=== PATIENT | male | born 1995 | race African-American/Black ===

== ENCOUNTER 2020-06-19 13:50 | Inpatient (IN) | payer OTHER ==
[~2020-06-19] VITALS: Ht 182.9 cm; Wt 66.7 kg
[2020-06-19] MEDS ORDERED: Tamsulosin 0.4mg cap ORAL STA (14:26)
[2020-06-19] MEDS ORDERED: Ketorolac 30mg Inj IV ONE (14:30)
--- NOTE | 2020-06-19 14:30 | Emergency Room Report ---
History of Present Illness General Chief Complaint: Abdominal Pain Source: Patient Present Illness HPI Patient is a 25-year-old -Italian male with past medical history of kidney stones that was diagnosed April 28 [place] presents with chief complaint of intermittent left flank pain for the past 2 weeks. He states that he had some hematuria associated with chills but no fever. He is sexually active/monogamous with 1 partner. He was recently checked for STDs and found to be negative. He is denying any concern for STD at this time. Denies penile discharge, scrotal lesion, testicular pain, chest pain, shortness of breath, melena, hematochezia or other symptoms. Patient is tolerating normal diet. The patient's symptoms were gradual onset, severity was moderate, duration since 2 weeks. Quality: Aching Past medical history: Kidney stones Past surgical history: Denies Smoking: Denies Alcohol use: Denies Drug use: Denies Review of systems: CONST: No fevers +chills, No night sweats PULMONARY: No productive cough, No shortness of breath CARDIAC: No chest pain, No palpitations GI: + vomiting, + diarrhea , No melena_or_BRBPR : No dysuria, No hematuria, No discharge NEURO: No new_focal_weakness_or_numbness, No confusion, No vision changes 14 point Review of Systems is otherwise negative except per HPI Physical Exam: GENERAL: Awake_alert_ nontoxic, no acute distress Spo2 98 % on RA -normal EYES: Extraocular muscles are intact. Conjunctivae clear. Lids without swelling ENT: External nose and ear normal_in_appearance. Oropharynx clear. Head_ atraumatic, Moist_oral_mucosa NECK: No JVD. No meningismus. No thyromegaly. Supple. Trachea midline RESP: Normal respiratory effort. Symmetric rise. No stridor. Clear_to_ auscultation_No_rales_No_wheezes CARDIAC: Tachycardic. Regular rhythm. No_significant pedal edema. ABDOMEN: Soft. Nondistended. Nontender_No_rebound_or_guarding. MSK: Normal muscle tone, without rigidity. Extremities without asymmetric deformity or swelling. SKIN: Warm and dry. No visible cyanosis or pallor NEUROLOGIC: Alert, oriented x3. Motor_and_sensation_grossly_intact. No truncal ataxia. Gait_normal Psych: Normal mood and affect, normal judgment and insight - COORDINATION OF CARE Case was discussed with: Patient Any labs and imaging that were ordered were interpreted as part of the medical decision making: Medical Decision Making/Plan: Differential diagnosis includes appendicitis, diverticulitis, kidney stone, enteritis, proctitis, UTI, doubt testicular torsion small bowel obstruction, volvulus, AAA, pancreatitis, among others. Patient is has low grade tachycardia and hypotension. Abdominal exam is non peritoneal with no guarding or rebound. No CVA tenderness to palpation. Sepsis bundle initiated on arrival. Blood cultures, lactate drawn. Lactate was not elevated, patient was given 30 cc/kg IV fluids by bolus but remained hypotensive. Empiric antibiotics were started including flagyl and rocephin. ED intervention included fluids, Zofran, Toradol, and Flomax. Labs show mild leukocytosis of 11.4. Anion gap of 16. Creatinine function is within normal limits. Urinalysis is consistent with UTI. CT scan shows cystitis, proctitis, enteritis/ileus. There are also several nonobstructing kidney stones I spoke with Dr. Conte, and reviewed the patients presentation, workup, results, and treatment. They will admit the patient for further care and evaluation, and assume care of the patient at this time. The patient has no significant risk factors for AAA (abdominal aortic aneurysm) such as age over 50 with history of hypertension, connective tissue disorder, or 1st degree relative with AAA. In addition, the patient has normal dorsalis pedis pulses, no radiation of pain to the back, and no pulsatile mass felt on exam. The patients profile was overall low risk for AAA and definitive workup was not pursued. The patients presentation is not consistent with testicular torsion. The patient denies any testicular pain, pain was not sudden onset or associated with vomiting. Testicular exam is normal without any evidence of torsion. The patient denies any bloody stool and has no pain out of proportion to exam, and no significant risk factors for mesenteric ischemia such as atrial fibrillation or severe PAD/PVD (peripheral arterial / vascular disease), thus definitive workup to rule out mesenteric ischemia was not pursued. Allergies: Coded Allergies: No Known Allergies (Unverified , 06/19/20) COVID-19 Screening Contact w/high risk pt: No Experienced COVID-19 symptoms?: No COVID-19 Testing performed BILL COLLECTOR: No Nursing Documentation-PMH Past Medical History: No Stated History Physical Exam Vital Signs Date Time Temp Pulse Resp B/P (MAP) Pulse Ox O2 Delivery O2 Flow Rate FiO2 06/19/20 14:02 98.8 134 18 99/66 (77) 99 Room Air Sp02 EP Interpretation: reviewed, normal Medical Decision Making Diagnostic Impression: Primary Impression: Sepsis Additional Impressions: Proctitis Cystitis Hyponatremia Dehydration with hyponatremia Nephrolithiasis Abdominal pain Rhythm Strip Diag. Results Rhythm Strip Time: 15:38 EP Interpretation: yes Rate: 111 Rhythm: NSR, no PVC's, no ectopy CT/MRI/US Diagnostic Results CT/MRI/US Diagnostic Results : Impression CT Abdomen Pelvis WO Contrast EXAM: CT Abdomen and Pelvis Without Intravenous Contrast CLINICAL HISTORY: PAIN TECHNIQUE: Axial computed tomography images of the abdomen and pelvis without intravenous contrast. CTDI is 3.6 mGy and DLP is 193.5 mGy-cm. One or more of the following dose reduction techniques were used: automated exposure control, adjustment of the mA and/or kV according to patient size, use of iterative reconstruction technique. COMPARISON: None FINDINGS: Lung bases: Unremarkable. No mass. No consolidation. ABDOMEN: Liver: Unremarkable. Gallbladder and bile ducts: Slightly hyperdense material within the gallbladder may represent artifact versus stones/sludge. No ductal dilation. Pancreas: Unremarkable. No ductal dilation. Spleen: Unremarkable. No splenomegaly. Adrenals: Unremarkable. No mass. Kidneys and ureters: Punctate nonobstructing bilateral renal stones. No hydronephrosis or definite ureteral stone. Stomach and bowel: Wall thickening of the rectum with perirectal fat stranding and small amount of presacral fluid, concerning for proctitis. Mildly prominent fluid and gas-filled small bowel loops are nonspecific but may represent enteritis or ileus in the appropriate clinical setting. No obstruction. PELVIS: Appendix: Fluid around the appendix, but the appendix otherwise appears normal. Bladder: Severe bladder wall thickening and surrounding fat stranding, concerning for cystitis. The bladder is decompressed. No stones. Reproductive: Unremarkable as visualized. ABDOMEN and PELVIS: Intraperitoneal space: Small amount of ascites. No free air. Bones/joints: No acute fracture. No dislocation. Soft tissues: Unremarkable. Vasculature: Unremarkable. No abdominal aortic aneurysm. Lymph nodes: Prominent mesenteric lymph nodes are nonspecific but may be reactive. IMPRESSION: 1. Punctate nonobstructing bilateral renal stones. No hydronephrosis or definite ureteral stone. 2. Severe bladder wall thickening and surrounding fat stranding, concerning for cystitis. The bladder is decompressed. 3. Wall thickening of the rectum with perirectal fat stranding and small amount of presacral fluid, concerning for proctitis. 4. Mildly prominent fluid and gas-filled small bowel loops are nonspecific but may represent enteritis or ileus in the appropriate clinical setting. 5. Small amount of ascites. Last Vital Signs Date Time Temp Pulse Resp B/P (MAP) Pulse Ox O2 Delivery O2 Flow Rate FiO2 06/19/20 14:02 98.8 134 18 99/66 (77) 99 Room Air Disposition: ADMITTED INPATIENT Admit Decision Time: 15:00 Condition: Stable Romy Bocanegra D.O. Jun 19, 2020 14:29
[2020-06-19] MEDS ORDERED: cefTRIAXone 1 GM in NS 55 ML IVPB ONE (14:45)
[2020-06-19 14:50] LABS: BASOPHILS % (AUTO) 1.8 % (0.0-2.0); EOSINOPHILS % (AUTO) 0.1 % (0.0-3.0); HEMATOCRIT 30.1 % (42.0-52.0); HEMOGLOBIN 9.8 G/DL (14.2-18.0); LYMPHOCYTES % (AUTO) 19.3 % (20.0-45.0); MEAN CORPUSCULAR VOLUME 79 FL (80-99); MONOCYTES % (AUTO) 7.5 % (1.0-10.0); NEUTROPHILS % (AUTO) 71.2 % (45.0-75.0); PLATELET COUNT 497 K/UL (150-450); RED CELL DISTRIBUTION WIDTH 13.1 % (11.6-14.8); WHITE BLOOD COUNT 11.4 K/UL (4.8-10.8)
[2020-06-19 14:57] LABS: ANION GAP 16 mmol/L (5-15); BLOOD UREA NITROGEN 17 mg/dL (7-18); CALCIUM 9.6 MG/DL (8.5-10.1); CARBON DIOXIDE 25 MMOL/L (21-32); CHLORIDE 89 MMOL/L (98-107); CREATININE 1.3 MG/DL (0.55-1.30); POTASSIUM 3.9 MMOL/L (3.5-5.1); SODIUM 130 MMOL/L (136-145)
[2020-06-19] MEDS ORDERED: Sodium Chloride 1,900 ML IVLG ONE (15:00)
[2020-06-19 15:02] LABS: ALANINE AMINOTRANSFERASE 149 U/L (12-78); ALBUMIN 2.8 G/DL (3.4-5.0); ALBUMIN/GLOBULIN RATIO 0.4 (1.0-2.7); ALKALINE PHOSPHATASE 125 U/L (46-116); ASPARTATE AMINO TRANSFERASE 132 U/L (15-37); BILIRUBIN,TOTAL 0.9 MG/DL (0.2-1.0); INR 1.3 (0.9-1.1)
--- NOTE | 2020-06-19 15:16 | Diagnostic Imaging Report ---
EXAM: CT Abdomen and Pelvis Without Intravenous Contrast CLINICAL HISTORY: PAIN TECHNIQUE: Axial computed tomography images of the abdomen and pelvis without intravenous contrast. CTDI is 3.6 mGy and DLP is 193.5 mGy-cm. One or more of the following dose reduction techniques were used: automated exposure control, adjustment of the mA and/or kV according to patient size, use of iterative reconstruction technique. COMPARISON: None FINDINGS: Lung bases: Unremarkable. No mass. No consolidation. ABDOMEN: Liver: Unremarkable. Gallbladder and bile ducts: Slightly hyperdense material within the gallbladder may represent artifact versus stones/sludge. No ductal dilation. Pancreas: Unremarkable. No ductal dilation. Spleen: Unremarkable. No splenomegaly. Adrenals: Unremarkable. No mass. Kidneys and ureters: Punctate nonobstructing bilateral renal stones. No hydronephrosis or definite ureteral stone. Stomach and bowel: Wall thickening of the rectum with perirectal fat stranding and small amount of presacral fluid, concerning for proctitis. Mildly prominent fluid and gas-filled small bowel loops are nonspecific but may represent enteritis or ileus in the appropriate clinical setting. No obstruction. PELVIS: Appendix: Fluid around the appendix, but the appendix otherwise appears normal. Bladder: Severe bladder wall thickening and surrounding fat stranding, concerning for cystitis. The bladder is decompressed. No stones. Reproductive: Unremarkable as visualized. ABDOMEN and PELVIS: Intraperitoneal space: Small amount of ascites. No free air. Bones/joints: No acute fracture. No dislocation. Soft tissues: Unremarkable. Vasculature: Unremarkable. No abdominal aortic aneurysm. Lymph nodes: Prominent mesenteric lymph nodes are nonspecific but may be reactive. IMPRESSION: 1. Punctate nonobstructing bilateral renal stones. No hydronephrosis or definite ureteral stone. 2. Severe bladder wall thickening and surrounding fat stranding, concerning for cystitis. The bladder is decompressed. 3. Wall thickening of the rectum with perirectal fat stranding and small amount of presacral fluid, concerning for proctitis. 4. Mildly prominent fluid and gas-filled small bowel loops are nonspecific but may represent enteritis or ileus in the appropriate clinical setting. 5. Small amount of ascites.
[2020-06-19 15:18] VITALS: BP 99/66
[2020-06-19 15:24] LABS: APPEARANCE,URINE CLOUDY; BILIRUBIN, URINE 2+ (NEGATIVE); COLOR,URINE YELLOW; GLUCOSE, URINE (UA) NEGATIVE (NEGATIVE); KETONES,URINE NEGATIVE (NEGATIVE); NITRITE,URINE NEGATIVE (NEGATIVE); PROTEIN,URINE 1+ (NEGATIVE)
[2020-06-19 15:25] LABS: LEUKOCYTE ESTERASE ,URINE NEGATIVE (NEGATIVE); UROBILINOGEN,URINE 4 MG/DL (0.0-1.0)
[2020-06-19] MEDS ORDERED: metroNIDAZOLE 500mg tab ORAL ONE (15:30)
[2020-06-19 17:00] VITALS: BP 118/71
[2020-06-19] MEDS: D5NS 1,000 ML IV SCH (18:00)
[2020-06-19 18:30] VITALS: BP 139/93
[2020-06-19 20:00] VITALS: BP 117/77
[2020-06-19] MEDS: Heparin 5000 units/ml inj SUBQ SCH (21:13)
[2020-06-19] MEDS: Piperacillin/Tazobactam 3.375 GM in NS 110 ML IVPB SCH (21:13)
[2020-06-19] MEDS: metroNIDAZOLE 500mg tab ORAL SCH (21:13)
--- NOTE | 2020-06-19 21:44 | History and Physical Report ---
DATE OF ADMISSION: 06/19/2020 CHIEF COMPLAINT: Abdominal pain and back pain. HISTORY OF PRESENT ILLNESS: The patient is 25-year-old male. He has no significant past medical history. He recently moved from [place]. He presents now with complaints of back pain and crampy abdominal pain. According to the patient, he was well. He was apparently diagnosed with kidney stone several months back during workup for epididymitis. He was recently in [place] where he was diagnosed with an infected hair follicle on the scrotum. He did receive antibiotics. He moved here several weeks ago. He denies any diarrhea, but he has had intermittent episodes of crampy abdominal pain. He also had some back pain which he attributes to kidney stones. On evaluation in the emergency room, the patient was afebrile. He was tachycardic. Laboratories were significant for sodium 130 and elevated AST and ALT of and 149. A CT scan of the abdomen showed nonobstructing bilateral kidney stones, severe bladder wall thickening consistent with cystitis. Thickening of the rectum and perirectal fat stranding consistent with proctitis as well as prominent fluid and gas-filled small bowel loops. The patient has been started on IV hydration as well as antibiotics. He is now admitted for further evaluation and care. PAST MEDICAL HISTORY: None. PAST SURGICAL HISTORY: None. CURRENT MEDICATIONS: None. FAMILY HISTORY: None. SOCIAL HISTORY: No tobacco, ethanol, or drugs. REVIEW OF SYSTEMS: GENERAL: No fevers or chills. HEENT: No headaches or visual changes. CARDIOPULMONARY: No chest pain or shortness of breath. GASTROINTESTINAL: Mild chronic abdominal pain. No melena. No bright red blood per rectum. No diarrhea. GENITOURINARY: No urgency or frequency. MUSCULOSKELETAL: No joint pain or swelling. NEUROLOGIC: No evidence of seizures. PHYSICAL EXAMINATION: VITAL SIGNS: Temperature 98 degrees, pulse 86, respirations 18, and blood pressure 139/93. GENERAL: The patient well-developed, thin male, in no apparent distress. He is awake, alert, and oriented x4. HEENT: The head is normocephalic and atraumatic. Sclerae are anicteric. Oropharynx is clear. NECK: Supple. HEART: Regular rate and rhythm. LUNGS: Clear. ABDOMEN: Soft, nontender, nondistended with hyperactive bowel sounds. EXTREMITIES: No clubbing, cyanosis, or edema. LABS: White count 11, hemoglobin 10, platelets of 497. Sodium 130, potassium 3.9, AST 132, ALT of 149. UA showed 5 to 20 wbc's. ASSESSMENT: This is a pleasant 25-year-old male with no past medical history, who presents with crampy abdominal pain and back pain secondary to proctitis. The patient did receive antibiotics several weeks ago, so C. difficile is a possibility. He is also hyponatremic. PLAN: 1. IV hydration. Empiric antibiotics to cover for colitis and proctitis. 2. GI and ID consultations will be obtained. 3. We will monitor the patient's response clinically. Can consider colonoscopy if symptoms do not improve. 4. Plan of care was discussed with the patient. Shree Conte M.D. DR: COLLIN JOB#: [id number] CC:
[2020-06-20] VITALS: BP 132/82
[2020-06-20 04:00] VITALS: BP 120/61
[2020-06-20] MEDS: D5NS 1,000 ML IV SCH ×3 (04:00→23:44)
[2020-06-20] MEDS: Piperacillin/Tazobactam 3.375 GM in NS 110 ML IVPB SCH ×3 (05:25→21:05)
[2020-06-20] MEDS: metroNIDAZOLE 500mg tab ORAL SCH (05:25)
[2020-06-20 07:03] LABS: ANION GAP 11 mmol/L (5-15); BLOOD UREA NITROGEN 15 mg/dL (7-18); CALCIUM 8.5 MG/DL (8.5-10.1); CARBON DIOXIDE 25 MMOL/L (21-32); CHLORIDE 94 MMOL/L (98-107); CREATININE 1.2 MG/DL (0.55-1.30); HEMATOCRIT 24.3 % (42.0-52.0); HEMOGLOBIN 7.8 G/DL (14.2-18.0); MEAN CORPUSCULAR VOLUME 79 FL (80-99); PLATELET COUNT 403 K/UL (150-450); POTASSIUM 3.6 MMOL/L (3.5-5.1); RED BLOOD COUNT 3.07 M/UL (4.70-6.10); RED CELL DISTRIBUTION WIDTH 13.3 % (11.6-14.8); SODIUM 130 MMOL/L (136-145); WHITE BLOOD COUNT 9.5 K/UL (4.8-10.8)
[2020-06-20 07:08] LABS: ALANINE AMINOTRANSFERASE 98 U/L (12-78); ALBUMIN 2.1 G/DL (3.4-5.0); ALBUMIN/GLOBULIN RATIO 0.4 (1.0-2.7); ALKALINE PHOSPHATASE 98 U/L (46-116); ASPARTATE AMINO TRANSFERASE 76 U/L (15-37); BILIRUBIN,TOTAL 0.7 MG/DL (0.2-1.0)
[2020-06-20 08:00] VITALS: BP 119/77
--- NOTE | 2020-06-20 08:02 | General Progress Note ---
Assessment/Plan Problem List: (1) Hyponatremia ICD Codes: E87.1 - Hypo-osmolality and hyponatremia SNOMED: 76632300 (2) Proctitis ICD Codes: K62.89 - Other specified diseases of anus and rectum; E87.1 - Hypo- osmolality and hyponatremia SNOMED: 1970166, 86493975 (3) Abdominal pain ICD Codes: R10.9 - Unspecified abdominal pain SNOMED: 79506399 (4) Cystitis ICD Codes: N30.90 - Cystitis, unspecified without hematuria SNOMED: 89257704, 11997346 (5) Dehydration with hyponatremia ICD Codes: E86.0 - Dehydration; E87.1 - Hypo-osmolality and hyponatremia SNOMED: 89831159, 83068322 Status: stable Assessment/Plan: ivf iv abx follow up cultures PPI rx ID, GI and eval Subjective ROS Limited/Unobtainable: No Constitutional: Reports: fever, weakness HEENT: Reports: no symptoms Cardiovascular: Reports: no symptoms Respiratory: Reports: no symptoms Gastrointestinal/Abdominal: Reports: abdominal pain Genitourinary: Reports: no symptoms Neurologic/Psychiatric: Reports: no symptoms Endocrine: Reports: no symptoms Hematologic/Lymphatic: Reports: no symptoms Allergies: Coded Allergies: No Known Allergies (Unverified , 06/19/20) All Systems: reviewed and negative except above Subjective no complaints. mild abd pain. no diarrhea. low grade fevers. on abx, no diarrhea. Objective Last 24 Hour Vital Signs Date Time Temp Pulse Resp B/P (MAP) Pulse Ox O2 Delivery O2 Flow Rate FiO2 06/20/20 04:00 99.2 84 18 120/61 (80) 99 06/20/20 00:08 100.1 06/20/20 00:00 100.1 88 19 132/82 (99) 100 06/19/20 21:50 Room Air 06/19/20 20:00 98.4 71 18 117/77 (90) 100 06/19/20 18:30 98.5 86 18 139/93 (108) 99 06/19/20 18:20 98.6 82 18 125/74 98 Room Air 06/19/20 17:00 98.3 94 18 118/71 98 Room Air 06/19/20 15:18 98.8 111 18 99/66 99 Room Air 06/19/20 15:16 111 18 Room Air 06/19/20 14:02 98.8 134 18 99/66 (77) 99 Room Air Intake and Output 06/19/20 06/20/20 19:00 07:00 Intake Total 1837.5 ml Output Total 800 ml Balance 1037.5 ml Intake Oral 1100 ml IV Total 737.5 ml Output Urine Total 800 ml # Voids 1 Laboratory Tests 06/19/20 14:20: Urine Color Yellow, Urine Appearance Cloudy, Urine pH 6.0, Urine Specific [place] 1.015, Urine Protein 1+H, Urine Glucose (UA) Negative, Urine Ketones Negative, Urine Blood 4+H, Urine Nitrite Negative, Urine Bilirubin 2+H, Urine Ictotest Positive, Urine Urobilinogen 4H, Urine Leukocyte Esterase Negative, Urine RBC 15-20H, Urine WBC 0-2, Urine Squamous Epithelial Cells Occasional, Urine Amorphous Sediment ManyH, Urine Bacteria ManyH 06/19/20 14:28: White Blood Count 11.4H, Red Blood Count 3.80L, Hemoglobin 9.8L, Hematocrit 30.1L, Mean Corpuscular Volume 79L, Mean Corpuscular Hemoglobin 25.9L, Mean Corpuscular Hemoglobin Concent 32.7, Red Cell Distribution Width 13.1, Platelet Count 497H, Mean Platelet Volume 5.2L, Neutrophils (%) (Auto) 71.2, Lymphocytes (%) (Auto) 19.3L, Monocytes (%) (Auto) 7.5, Eosinophils (%) (Auto) 0.1, Basophils (%) (Auto) 1.8, Prothrombin Time 14.0H, Prothromb Time International Ratio 1.3H, Activated Partial Thromboplast Time 31, Sodium Level 130L, Potassium Level 3.9, Chloride Level 89L, Carbon Dioxide Level 25, Anion Gap 16H , Blood Urea Nitrogen 17, Creatinine 1.3, Estimat Glomerular Filtration Rate > 60, Glucose Level 107H, Calcium Level 9.6, Total Bilirubin 0.9, Aspartate Amino Transf (AST/SGOT) 132H, Alanine Aminotransferase (ALT/SGPT) 149H, Alkaline Phosphatase 125H, Total Protein 9.7H, Albumin 2.8L, Globulin 6.9, Albumin/ Globulin Ratio 0.4L, Lipase 196 06/19/20 15:05: Lactic Acid Level 1.10 06/20/20 05:15: White Blood Count 9.5, Red Blood Count 3.07L, Hemoglobin 7.8L, Hematocrit 24.3L , Mean Corpuscular Volume 79L, Mean Corpuscular Hemoglobin 25.4L, Mean Corpuscular Hemoglobin Concent 32.1, Red Cell Distribution Width 13.3, Platelet Count 403, Mean Platelet Volume 5.3L, Neutrophils (%) (Auto) , Lymphocytes (%) ( Auto) , Monocytes (%) (Auto) , Eosinophils (%) (Auto) , Basophils (%) (Auto) , Sodium Level 130L, Potassium Level 3.6, Chloride Level 94L, Carbon Dioxide Level 25, Anion Gap 11, Blood Urea Nitrogen 15, Creatinine 1.2, Estimat Glomerular Filtration Rate > 60, Glucose Level 116H, Calcium Level 8.5, Total Bilirubin 0.7, Aspartate Amino Transf (AST/SGOT) 76H, Alanine Aminotransferase ( ALT/SGPT) 98H, Alkaline Phosphatase 98, Total Protein 7.7, Albumin 2.1L, Globulin 5.6, Albumin/Globulin Ratio 0.4L, Neutrophils % (Manual) [Pending], Lymphocytes % (Manual) [Pending], Platelet Estimate [Pending], Platelet Morphology [Pending] Height (Feet): 6 Weight (Pounds): 138 General Appearance: WD/WN Neck: supple Cardiovascular: regular rhythm Respiratory/Chest: lungs clear Abdomen: normal bowel sounds, non tender, soft, no organomegaly, no mass, hyperactive bowel sounds Edema: no edema noted Arm (L), no edema noted Arm (R) Shree Conte MD Jun 20, 2020 08:02
[2020-06-20] MEDS: Heparin 5000 units/ml inj SUBQ SCH ×2 (08:43→21:05)
[2020-06-20 12:00] VITALS: BP 102/64
--- NOTE | 2020-06-20 13:30 | Consultation ---
DATE OF CONSULTATION: 06/20/2020 INFECTIOUS DISEASE CONSULTATION CONSULTING PHYSICIAN: Israel Biggs MD. REFERRING PHYSICIAN: Shree Conte MD. REASON FOR CONSULTATION: Cystitis and proctitis. HISTORY OF PRESENTING ILLNESS: This is a 25-year-old gentleman with no significant past medical history, who comes in with abdominal pain. Apparently, he had a kidney stone several months back during an episode of epididymitis. Now, he has also got back pain. He has got liver enzyme abnormalities. A CT abdomen showed nonobstructing bilateral kidney stones, bladder thickening consistent with cystitis. There is also some proctitis. An Infectious Disease consultation has been obtained for antibiotics. PAST MEDICAL HISTORY: Nothing significant. SOCIAL HISTORY: He used to smoke. He does not smoke anymore. He drinks alcohol socially. No history of drug use. FAMILY HISTORY: Noncontributory. REVIEW OF SYSTEMS: RESPIRATORY: No fever or chills. No cough. No shortness of breath or chest pain. CARDIAC: No chest pain. No palpitation. No dizziness. No syncope. GASTROINTESTINAL: He had nausea. No vomiting. He has abdominal pain and back pain. No diarrhea. GENITOURINARY: No dysuria. No hematuria. MEDICATIONS: As an inpatient, he is on Tylenol, Zosyn, Flagyl, subcutaneous heparin, famotidine, and Zofran. ALLERGIES: No known drug allergies. PHYSICAL EXAMINATION: VITAL SIGNS: Temperature 100.8, T-max of 100.8, pulse of 91, respiratory rate 18, and blood pressure 119/77. O2 saturation of 99% on room air. HEENT: Pupils are equally reactive to light and accommodation. Mouth appears clean without thrush. NECK: Supple. No adenopathy. No JVD. CARDIOVASCULAR: Regular rate and rhythm. No murmurs. LUNGS: Clear to auscultation bilaterally. No crackles. No wheezes. ABDOMEN: Soft. There is right lower quadrant tenderness noted. No CVA tenderness. EXTREMITIES: No cyanosis, no clubbing, no edema. LABORATORY AND DIAGNOSTIC DATA: White count of 9.5, hemoglobin 7.8, hematocrit 24.3, MCV 79, platelet count of 403,000. Sodium 130, potassium 3.6, chloride 94, bicarb 25, BUN 15, creatinine 1.2. Glucose 116. Calcium 8.5. Total bilirubin 0.7, AST 76, ALT 98, alkaline phosphatase 98. Total protein 7.7, albumin 2.1. Lipase of 196. UA showing 0 to 2 white cells. Urine cultures are negative. CT abdomen and pelvis showing punctate nonobstructing bilateral renal stones. No hydronephrosis or ureteral stone. Severe bladder wall thickening and surrounding fat stranding concerning for cystitis. Wall thickening of the rectum with perirectal fat stranding. A small amount of presacral fluid concerning for proctitis. There may be enteritis or ileus. Small amount of ascites noted. Fluid around the appendix, but the appendix otherwise appears normal. ASSESSMENT: This is a 25-year-old gentleman with no significant past medical history, who comes in with abdominal pain along with nausea and is found to have, 1. Cystitis. His urine cultures are negative so far. 2. He also has some possible proctitis. 3. Leukocytosis is improving. PLAN: 1. Continue Zosyn. 2. GI evaluation is pending. 3. Discontinue Flagyl. 4. We will follow the patient clinically. I would like to thank Dr. Conte for this consultation. Israel Biggs M.D. DR: NORY JOB#: [id number] CC:
[2020-06-20 16:00] VITALS: BP 122/80
[2020-06-20 20:00] VITALS: BP 107/69
--- NOTE | 2020-06-20 22:00 | Consultation ---
DATE OF CONSULTATION: 06/20/2020 CONSULTING PHYSICIAN: Jonathan Gutiérrez MD. REFERRING PHYSICIAN: Shree Conte MD. REASON FOR CONSULTATION: For evaluation of cystitis. HISTORY OF PRESENT ILLNESS: This is a 25-year-old gentleman. He was admitted to the hospital because of abdominal and back pain. He apparently has a history of nephrolithiasis. He has recently moved to [place] from [place]. He had a workup including a CT scan that showed the bladder thickening and possible cystitis. Urology evaluation requested. The patient denies significant dysuria. He has occasional frequency. PAST MEDICAL HISTORY: As above. PAST SURGICAL HISTORY: None. MEDICATIONS: Current medication list in the hospital was reviewed. SOCIAL HISTORY: Patient is a nonsmoker. REVIEW OF SYSTEMS: As above. FAMILY HISTORY: Noncontributory. PHYSICAL EXAMINATION: GENERAL: A well-developed, well-nourished male, in no acute distress. VITAL SIGNS: Temperature is , blood pressure is 107/69, pulse 108, respirations 18. HEENT: Normocephalic. NECK: Supple. ABDOMEN: Soft, mildly tender. BACK: No CVA tenderness. LABORATORY DATA: BUN is 15, creatinine 1.2. White count 9.5, hemoglobin 7.8, platelets are 403. UA showed 1+ protein, 15 to 20 rbc's, 0 to 2 wbc's, but many bacteria. Urine culture is negative so far. DIAGNOSTIC IMAGING STUDIES: The patient had a CT scan of the abdomen and pelvis, this was a noncontrast study. There was mention of punctate bilateral renal stones. No hydronephrosis. There was severe bladder wall thickening with fat stranding consistent with cystitis. There was also mention of thickening of the rectum as well, consistent with possible proctitis and also enteritis. IMPRESSION: 1. Bladder wall thickening, presumably cystitis. 2. Nephrolithiasis, nonobstructive. 3. Mild lower urinary tract symptoms. 4. Possible neurogenic bladder. 5. Proteinuria. 6. Hematuria. 7. Rule out UTI. PLAN AND DISCUSSION: Again, the patient does have what appears to be generalized inflammation of his bladder, rectum, and small bowel. He does have again bladder wall thickening concerning for cystitis. His UA shows red cells, but no white blood cells. There is also bacteria and his kidney stones are small and nonobstructive and I do not believe they are contributing to the pain. The exact etiology of the cystitis is unknown, but at this time, I would agree with clinical monitoring as well as antibiotics as ordered. He is currently on Zosyn. We will follow up on cultures and go from there. He is currently febrile. He is also severely anemic, which probably needs to be worked up. At some point, he will need to have cystoscopy to evaluate the bladder and this can be done electively later. Thank you, Dr. Conte, for asking me to see this patient in consultation. Jonathan Gutiérrez M.D. DR: SIVA JOB#: [id number] CC:
--- NOTE | 2020-06-20 22:02 | General Progress Note ---
Assessment/Plan Status: stable Assessment/Plan: Assessment - Abdominal pain - proctitis per CT appearance - severe microcytic anemia Recommendations - hold diet at clears - GI tract preparation - f/u stool w/u - Rapid COVID screening, needed for GI endoscopy - EGD/Colon Sat or TH Thank you Partha angulo Subjective Allergies: Coded Allergies: No Known Allergies (Unverified , 06/19/20) Objective Last 24 Hour Vital Signs Date Time Temp Pulse Resp B/P (MAP) Pulse Ox O2 Delivery O2 Flow Rate FiO2 06/20/20 21:30 99.3 06/20/20 21:00 Room Air 06/20/20 20:00 102.6 108 18 107/69 (82) 98 06/20/20 18:05 101.0 06/20/20 16:00 100.4 92 20 122/80 (94) 98 06/20/20 12:00 98.8 81 18 102/64 (77) 98 06/20/20 09:00 Room Air 06/20/20 08:00 100.8 91 18 119/77 (91) 99 06/20/20 04:00 99.2 84 18 120/61 (80) 99 06/20/20 00:00 100.1 88 19 132/82 (99) 100 Intake and Output 06/19/20 06/20/20 19:00 07:00 Intake Total 1837.5 ml Output Total 800 ml Balance 1037.5 ml Intake Oral 1100 ml IV Total 737.5 ml Output Urine Total 800 ml # Voids 1 Laboratory Tests 06/20/20 05:15: White Blood Count 9.5, Red Blood Count 3.07L, Hemoglobin 7.8L, Hematocrit 24.3L , Mean Corpuscular Volume 79L, Mean Corpuscular Hemoglobin 25.4L, Mean Corpuscular Hemoglobin Concent 32.1, Red Cell Distribution Width 13.3, Platelet Count 403, Mean Platelet Volume 5.3L, Neutrophils (%) (Auto) , Lymphocytes (%) ( Auto) , Monocytes (%) (Auto) , Eosinophils (%) (Auto) , Basophils (%) (Auto) , Differential Total Cells Counted 100, Neutrophils % (Manual) 73, Lymphocytes % ( Manual) 20, Monocytes % (Manual) 5, Eosinophils % (Manual) 2, Basophils % ( Manual) 0, Band Neutrophils 0, Platelet Estimate Adequate, Platelet Morphology Normal, Hypochromasia 1+, Sodium Level 130L, Potassium Level 3.6, Chloride Level 94L, Carbon Dioxide Level 25, Anion Gap 11, Blood Urea Nitrogen 15, Creatinine 1.2, Estimat Glomerular Filtration Rate > 60, Glucose Level 116H, Calcium Level 8.5, Total Bilirubin 0.7, Aspartate Amino Transf (AST/SGOT) 76H, Alanine Aminotransferase (ALT/SGPT) 98H, Alkaline Phosphatase 98, Total Protein 7.7, Albumin 2.1L, Globulin 5.6, Albumin/Globulin Ratio 0.4L Height (Feet): 6 Weight (Pounds): 138 Partha Angulo MD Jun 20, 2020 22:02
[2020-06-21] VITALS: BP 116/75
--- NOTE | 2020-06-21 02:29 | Consultation ---
DATE OF CONSULTATION: 06/20/2020 GASTROENTEROLOGY CONSULTATION CONSULTING PHYSICIAN: Partha Harris MD. CHIEF COMPLAINT: I was asked to see this patient by Dr. Shree Conte for evaluation of abdominal issues and anemia. HISTORY OF PRESENT ILLNESS: The patient is a 25-year-old man who recently moved in here from [place]. He has had no significant diarrhea, but has noted rare bleeding in his stools for the 3 months or so. The patient also has had a new-onset epigastric abdominal pain for about 2 weeks and also some back pain for about a month. He has never had endoscopy or colonoscopy. He does have some nausea, but no vomiting. His abdominal pain has not changed the oral intake or bowel movements. He did have a CT scan of the abdomen and pelvis showing bilateral kidney stones, which is being addressed separately. There were also some urinary bladder abnormalities. However, the patient's rectum also appeared to be thickened with some perirectal fat stranding consistent with proctitis. Patient has been noted to be anemic on admission and after IV hydration. PAST MEDICAL HISTORY: As outlined above remarkable for history of ureterolithiasis. FAMILY HISTORY: Negative for inflammatory bowel disease. SOCIAL HISTORY: Patient is straight. He has a girlfriend. He has no children. He previously smoked and drinks occasionally. OUTPATIENT MEDICATIONS: None. ALLERGIES: None. REVIEW OF SYSTEMS: Otherwise negative. PHYSICAL EXAMINATION: GENERAL: A well-developed, well-nourished man, in no distress. HEENT: Normocephalic and atraumatic. Sclerae anicteric. Oropharynx clear. NECK: Supple. CHEST: Clear to auscultation. CARDIOVASCULAR: Revealed a regular rate. ABDOMEN: Soft and nontender with good bowel sounds. EXTREMITIES: Revealed no edema. LABORATORY DATA: Noted. ASSESSMENT: This patient presents with a significant degree of anemia with some microcytic indices suggestive of significant blood loss. The patient had a mild initial leukocytosis, but that has resolved. I will consider for a gastrointestinal pathology such as Crohn's, colitis, or constipation in presentation. Alternatively, he may be also peptic ulcer disease causing the pain and bleeding. The patient will therefore have arranged for an upper endoscopy as well as colonoscopy to evaluate the GI tract. The patient also has abnormal liver tests, which have been declining. I will be checking his hepatitis serologies and CPK and follow his laboratory urine conservatively for now. He has had imaging of the liver already, which did not show any mass lesions. RECOMMENDATIONS: Per above discussion and per orders written in the chart. Thank you for asking me to participate in the care of this patient. Partha Harris M.D. DR: ANITRA JOB#: [id number] CC: SUMI
[2020-06-21 04:00] VITALS: BP 118/76
[2020-06-21] MEDS: Piperacillin/Tazobactam 3.375 GM in NS 110 ML IVPB SCH ×3 (05:04→20:10)
[2020-06-21 05:42] LABS: BASOPHILS % (AUTO) 0.5 % (0.0-2.0); EOSINOPHILS % (AUTO) 0.1 % (0.0-3.0); HEMATOCRIT 25.4 % (42.0-52.0); HEMOGLOBIN 8.1 G/DL (14.2-18.0); LYMPHOCYTES % (AUTO) 15.5 % (20.0-45.0); MEAN CORPUSCULAR VOLUME 79 FL (80-99); MONOCYTES % (AUTO) 5.7 % (1.0-10.0); NEUTROPHILS % (AUTO) 78.2 % (45.0-75.0); PLATELET COUNT 451 K/UL (150-450); RED BLOOD COUNT 3.21 M/UL (4.70-6.10); RED CELL DISTRIBUTION WIDTH 13.2 % (11.6-14.8); WHITE BLOOD COUNT 9.3 K/UL (4.8-10.8)
[2020-06-21 06:12] LABS: % IRON SATURATION 12 % (15-50); IRON 55 ug/dL (50-175); TOTAL IRON BINDING CAPACITY 456 ug/dL (250-450)
[2020-06-21 06:24] LABS: ALANINE AMINOTRANSFERASE 77 U/L (12-78); ALBUMIN 2.1 G/DL (3.4-5.0); ALBUMIN/GLOBULIN RATIO 0.4 (1.0-2.7); ALKALINE PHOSPHATASE 97 U/L (46-116); ANION GAP 12 mmol/L (5-15); ASPARTATE AMINO TRANSFERASE 42 U/L (15-37); BILIRUBIN,TOTAL 0.5 MG/DL (0.2-1.0); BLOOD UREA NITROGEN 8 mg/dL (7-18); CALCIUM 8.3 MG/DL (8.5-10.1); CARBON DIOXIDE 25 MMOL/L (21-32); CHLORIDE 98 MMOL/L (98-107); CREATININE 1.3 MG/DL (0.55-1.30); SODIUM 135 MMOL/L (136-145)
[2020-06-21 07:36] LABS: CREATINE KINASE 46 U/L (26-308)
[2020-06-21 08:00] VITALS: BP 111/63
--- NOTE | 2020-06-21 08:50 | Urology Progress Note ---
Assessment/Plan Status: stable Assessment/Plan: 1. Bladder wall thickening, presumably cystitis. 2. Nephrolithiasis, nonobstructive. 3. Mild lower urinary tract symptoms. 4. Possible neurogenic bladder. 5. Proteinuria. 6. Hematuria. 7. Rule out UTI. monitor clinically abx as ordered f/u on cx's cysto later monitor labs Subjective Allergies: Coded Allergies: No Known Allergies (Unverified , 06/19/20) Subjective all noted, feels fair, voiding, back pain Objective Last 24 Hour Vital Signs Date Time Temp Pulse Resp B/P (MAP) Pulse Ox O2 Delivery O2 Flow Rate FiO2 06/21/20 08:00 98.4 77 21 111/63 (79) 99 06/21/20 05:40 100.6 06/21/20 04:00 99.4 96 19 118/76 (90) 97 06/21/20 00:00 99.6 82 18 116/75 (89) 100 06/20/20 21:30 99.3 06/20/20 21:00 Room Air 06/20/20 20:00 102.6 108 18 107/69 (82) 98 06/20/20 16:00 100.4 92 20 122/80 (94) 98 06/20/20 12:00 98.8 81 18 102/64 (77) 98 06/20/20 09:00 Room Air Intake and Output 06/20/20 06/21/20 19:00 07:00 Intake Total 800 ml 2837.5 ml Output Total 1500 ml 1500 ml Balance -700 ml 1337.5 ml Intake Oral 800 ml 1600 ml IV Total 1237.5 ml Output Urine Total 1500 ml 1500 ml # Voids 1 Microbiology Date/Time Source Procedure Growth Status 06/19/20 15:05 Blood Blood Culture - Preliminary NO GROWTH AFTER 24 HOURS Resulted 06/20/20 22:15 Nasopharynx SARS-CoV-2 RdRp Gene Assay - Final Complete 06/19/20 14:20 Urine,Clean Catch Urine Culture - Preliminary NO GROWTH AFTER 24 HOURS Resulted Current Medications Medications (Trade) Dose Ordered Sig/Thai Route PRN Reason Start Time Stop Time Status Last Admin Dose Admin Acetaminophen (Tylenol) 650 mg Q4H PRN ORAL Mild Pain (Pain Scale 1-3) 06/19/20 23:30 07/19/20 16:59 06/21/20 05:10 Dextrose/Sodium Chloride 1,000 ml @ 100 mls/hr Q10H IV 06/19/20 18:00 07/19/20 17:59 06/20/20 23:44 Famotidine (Pepcid) 20 mg DAILY ORAL 06/19/20 18:00 09/17/20 17:59 06/20/20 08:41 Heparin Sodium (Porcine) (Heparin 5000 units/ml) 5,000 units EVERY 12 HOURS SUBQ 06/19/20 21:00 08/03/20 20:59 06/20/20 21:05 Ondansetron HCl (Zofran) 4 mg Q6H PRN IVP Nausea & Vomiting 06/19/20 17:00 07/19/20 16:59 Piperacillin Sod/ Tazobactam Sod 3.375 gm/Sodium Chloride 110 ml @ 27.5 mls/hr EVERY 8 HOURS IVPB 06/19/20 22:00 06/24/20 21:59 06/21/20 05:04 Polyethylene Glycol/ Electrolytes (Nulytely) 4,000 ml ONCE ORAL 06/21/20 10:00 07/21/20 09:59 Laboratory Tests 06/21/20 04:55: White Blood Count 9.3, Red Blood Count 3.21L, Hemoglobin 8.1L, Hematocrit 25.4L , Mean Corpuscular Volume 79L, Mean Corpuscular Hemoglobin 25.2L, Mean Corpuscular Hemoglobin Concent 31.8L, Red Cell Distribution Width 13.2, Platelet Count 451H, Mean Platelet Volume 5.3L, Neutrophils (%) (Auto) 78.2H, Lymphocytes (%) (Auto) 15.5L, Monocytes (%) (Auto) 5.7, Eosinophils (%) (Auto) 0.1, Basophils (%) (Auto) 0.5, Sodium Level 135L, Potassium Level 4.0, Chloride Level 98, Carbon Dioxide Level 25, Anion Gap 12, Blood Urea Nitrogen 8, Creatinine 1.3, Estimat Glomerular Filtration Rate > 60, Glucose Level 103, Calcium Level 8.3L, Iron Level 55, Total Iron Binding Capacity 456H, Percent Iron Saturation 12L, Unsaturated Iron Binding 401H, Total Bilirubin 0.5, Aspartate Amino Transf (AST/SGOT) 42H, Alanine Aminotransferase (ALT/SGPT) 77, Alkaline Phosphatase 97, Total Creatine Kinase 46, Total Protein 7.6, Albumin 2.1L, Globulin 5.5, Albumin/Globulin Ratio 0.4L, Hepatitis A IgM Antibody [ Pending], Hepatitis B Surface Antigen [Pending], Hepatitis B Core IgM Antibody [ Pending], Hepatitis C Antibody [Pending] Height (Feet): 6 Weight (Pounds): 138 Objective exam stable Jonathan Gutiérrez MD Jun 21, 2020 08:50
--- NOTE | 2020-06-21 09:15 | General Progress Note ---
Assessment/Plan Problem List: (1) Hyponatremia ICD Codes: E87.1 - Hypo-osmolality and hyponatremia SNOMED: 78033924 (2) Proctitis ICD Codes: K62.89 - Other specified diseases of anus and rectum; E87.1 - Hypo- osmolality and hyponatremia SNOMED: 5149607, 92825062 (3) Abdominal pain ICD Codes: R10.9 - Unspecified abdominal pain SNOMED: 72830608 (4) Cystitis ICD Codes: N30.90 - Cystitis, unspecified without hematuria SNOMED: 50768621, 71331064 (5) Dehydration with hyponatremia ICD Codes: E86.0 - Dehydration; E87.1 - Hypo-osmolality and hyponatremia SNOMED: 23475485, 55262874 Status: stable Assessment/Plan: ivf iv abx follow up cultures PPI rx endoscopy per GI check steve check iron shelter monitor for bleeding Subjective ROS Limited/Unobtainable: No Constitutional: Reports: fever, weakness HEENT: Reports: no symptoms Cardiovascular: Reports: no symptoms Respiratory: Reports: no symptoms Gastrointestinal/Abdominal: Reports: no symptoms Genitourinary: Reports: no symptoms Neurologic/Psychiatric: Reports: no symptoms Endocrine: Reports: no symptoms Hematologic/Lymphatic: Reports: anemia Allergies: Coded Allergies: No Known Allergies (Unverified , 06/19/20) All Systems: reviewed and negative except above Subjective no complaints. no diarrhea. low grade fevers persisting. on abx, no diarrhea. ID , GI, appreciated. h/h stable. no reports of bleeding. Objective Last 24 Hour Vital Signs Date Time Temp Pulse Resp B/P (MAP) Pulse Ox O2 Delivery O2 Flow Rate FiO2 06/21/20 08:00 98.4 77 21 111/63 (79) 99 06/21/20 05:40 100.6 06/21/20 04:00 99.4 96 19 118/76 (90) 97 06/21/20 00:00 99.6 82 18 116/75 (89) 100 06/20/20 21:30 99.3 06/20/20 21:00 Room Air 06/20/20 20:00 102.6 108 18 107/69 (82) 98 06/20/20 16:00 100.4 92 20 122/80 (94) 98 06/20/20 12:00 98.8 81 18 102/64 (77) 98 Intake and Output 06/20/20 06/21/20 19:00 07:00 Intake Total 800 ml 2837.5 ml Output Total 1500 ml 1500 ml Balance -700 ml 1337.5 ml Intake Oral 800 ml 1600 ml IV Total 1237.5 ml Output Urine Total 1500 ml 1500 ml # Voids 1 Laboratory Tests 06/21/20 04:55: White Blood Count 9.3, Red Blood Count 3.21L, Hemoglobin 8.1L, Hematocrit 25.4L , Mean Corpuscular Volume 79L, Mean Corpuscular Hemoglobin 25.2L, Mean Corpuscular Hemoglobin Concent 31.8L, Red Cell Distribution Width 13.2, Platelet Count 451H, Mean Platelet Volume 5.3L, Neutrophils (%) (Auto) 78.2H, Lymphocytes (%) (Auto) 15.5L, Monocytes (%) (Auto) 5.7, Eosinophils (%) (Auto) 0.1, Basophils (%) (Auto) 0.5, Sodium Level 135L, Potassium Level 4.0, Chloride Level 98, Carbon Dioxide Level 25, Anion Gap 12, Blood Urea Nitrogen 8, Creatinine 1.3, Estimat Glomerular Filtration Rate > 60, Glucose Level 103, Calcium Level 8.3L, Iron Level 55, Total Iron Binding Capacity 456H, Percent Iron Saturation 12L, Unsaturated Iron Binding 401H, Total Bilirubin 0.5, Aspartate Amino Transf (AST/SGOT) 42H, Alanine Aminotransferase (ALT/SGPT) 77, Alkaline Phosphatase 97, Total Creatine Kinase 46, Total Protein 7.6, Albumin 2.1L, Globulin 5.5, Albumin/Globulin Ratio 0.4L, Hepatitis A IgM Antibody [ Pending], Hepatitis B Surface Antigen [Pending], Hepatitis B Core IgM Antibody [ Pending], Hepatitis C Antibody [Pending] Height (Feet): 6 Weight (Pounds): 138 Objective General Appearance: WD/WN Neck: supple Cardiovascular: regular rhythm Respiratory/Chest: lungs clear Abdomen: normal bowel sounds, non tender, soft, no organomegaly, no mass, hyperactive bowel sounds Edema: no edema noted Arm (L), no edema noted Arm (R) Shree Conte MD Jun 21, 2020 09:15
[2020-06-21] MEDS: Heparin 5000 units/ml inj SUBQ SCH ×2 (09:39→19:59)
[2020-06-21] MEDS: D5NS 1,000 ML IV SCH ×2 (09:44→19:41)
[2020-06-21] MEDS: Nulytely 4L ORAL SCH (10:14)
--- NOTE | 2020-06-21 10:28 | Infectious Diseases Prog Note ---
"Assessment/Plan Assessment/Plan antibiotics : zosyn 06.19.20 - A 1. UTI | cystitis 2. bilateral nephrolithiasis 3. leucocytosis resolved P 1. continue zosyn 2. will follow up cultures Subjective Constitutional: Denies: fever, chills Respiratory: Denies: shortness of breath, dry cough Gastrointestinal/Abdominal: Denies: nausea, vomiting, diarrhea Musculoskeletal: Reports: pain - decreased abdominal Allergies: Coded Allergies: No Known Allergies (Unverified , 06/19/20) Objective Last 24 Hour Vital Signs Date Time Temp Pulse Resp B/P (MAP) Pulse Ox O2 Delivery O2 Flow Rate FiO2 06/21/20 08:00 98.4 77 21 111/63 (79) 99 06/21/20 05:40 100.6 06/21/20 04:00 99.4 96 19 118/76 (90) 97 06/21/20 00:00 99.6 82 18 116/75 (89) 100 06/20/20 21:30 99.3 06/20/20 21:00 Room Air 06/20/20 20:00 102.6 108 18 107/69 (82) 98 06/20/20 16:00 100.4 92 20 122/80 (94) 98 06/20/20 12:00 98.8 81 18 102/64 (77) 98 Height (Feet): 6 Weight (Pounds): 138 Respiratory/Chest: lungs clear Cardiovascular: normal rate, regular rhythm, no gallop/murmur Abdomen: tender - RLQ Extremities: no edema Microbiology Date/Time Source Procedure Growth Status 06/19/20 15:05 Blood Blood Culture - Preliminary NO GROWTH AFTER 24 HOURS Resulted 06/19/20 14:50 Blood Blood Culture - Preliminary NO GROWTH AFTER 24 HOURS Resulted 06/20/20 22:15 Nasopharynx SARS-CoV-2 RdRp Gene Assay - Final Complete 06/19/20 14:20 Urine,Clean Catch Urine Culture - Preliminary NO GROWTH AFTER 24 HOURS Resulted Laboratory Tests Test 06/21/20 04:45 06/21/20 04:55 Anti-Nuclear Antibody Screen Pending White Blood Count 9.3 K/UL (4.8-10.8) Red Blood Count 3.21 M/UL (4.70-6.10) L Hemoglobin 8.1 G/DL (14.2-18.0) L Hematocrit 25.4 % (42.0-52.0) L Mean Corpuscular Volume 79 FL (80-99) L Mean Corpuscular Hemoglobin 25.2 PG (27.0-31.0) L Mean Corpuscular Hemoglobin Concent 31.8 G/DL (32.0-36.0) L Red Cell Distribution Width 13.2 % (11.6-14.8) Platelet Count 451 K/UL (150-450) H Mean Platelet Volume 5.3 FL (6.5-10.1) L Neutrophils (%) (Auto) 78.2 % (45.0-75.0) H Lymphocytes (%) (Auto) 15.5 % (20.0-45.0) L Monocytes (%) (Auto) 5.7 % (1.0-10.0) Eosinophils (%) (Auto) 0.1 % (0.0-3.0) Basophils (%) (Auto) 0.5 % (0.0-2.0) Sodium Level 135 MMOL/L (136-145) L Potassium Level 4.0 MMOL/L (3.5-5.1) Chloride Level 98 MMOL/L (98-107) Carbon Dioxide Level 25 MMOL/L (21-32) Anion Gap 12 mmol/L (5-15) Blood Urea Nitrogen 8 mg/dL (7-18) Creatinine 1.3 MG/DL (0.55-1.30) Estimat Glomerular Filtration Rate > 60 mL/min (>60) Glucose Level 103 MG/DL (74-106) Calcium Level 8.3 MG/DL (8.5-10.1) L Iron Level 55 ug/dL (50-175) Total Iron Binding Capacity 456 ug/dL (250-450) H Percent Iron Saturation 12 % (15-50) L Unsaturated Iron Binding 401 ug/dL (112-346) H Total Bilirubin 0.5 MG/DL (0.2-1.0) Aspartate Amino Transf (AST/SGOT) 42 U/L (15-37) H Alanine Aminotransferase (ALT/SGPT) 77 U/L (12-78) Alkaline Phosphatase 97 U/L (46-116) Total Creatine Kinase 46 U/L (26-308) Total Protein 7.6 G/DL (6.4-8.2) Albumin 2.1 G/DL (3.4-5.0) L Globulin 5.5 g/dL Albumin/Globulin Ratio 0.4 (1.0-2.7) L Hepatitis A IgM Antibody Pending Hepatitis B Surface Antigen Pending Hepatitis B Core IgM Antibody Pending Hepatitis C Antibody Pending Current Medications Medications (Trade) Dose Ordered Sig/Thai Route PRN Reason Start Time Stop Time Status Last Admin Dose Admin Acetaminophen (Tylenol) 650 mg Q4H PRN ORAL Mild Pain (Pain Scale 1-3) 06/19/20 23:30 07/19/20 16:59 06/21/20 05:10 Dextrose/Sodium Chloride 1,000 ml @ 100 mls/hr Q10H IV 06/19/20 18:00 07/19/20 17:59 06/21/20 09:44 Famotidine (Pepcid) 20 mg DAILY ORAL 06/19/20 18:00 09/17/20 17:59 06/21/20 09:36 Heparin Sodium (Porcine) (Heparin 5000 units/ml) 5,000 units EVERY 12 HOURS SUBQ 06/19/20 21:00 08/03/20 20:59 06/21/20 09:39 Ondansetron HCl (Zofran) 4 mg Q6H PRN IVP Nausea & Vomiting 06/19/20 17:00 07/19/20 16:59 Piperacillin Sod/ Tazobactam Sod 3.375 gm/Sodium Chloride 110 ml @ 27.5 mls/hr EVERY 8 HOURS IVPB 06/19/20 22:00 06/24/20 21:59 06/21/20 05:04 Polyethylene Glycol/ Electrolytes (Nulytely) 4,000 ml ONCE ORAL 06/21/20 10:00 07/21/20 09:59 06/21/20 10:14 Israel Biggs MD Jun 21, 2020 10:28"
[2020-06-21 12:00] VITALS: BP 125/80
[2020-06-21 16:02] VITALS: BP 137/80
[2020-06-21 20:00] VITALS: BP 126/72
--- NOTE | 2020-06-21 21:06 | General Progress Note ---
Assessment/Plan Status: stable Assessment/Plan: Assessment - Abdominal pain - proctitis per CT appearance - severe microcytic anemia Recommendations - hold diet at clears - GI tract preparation today - f/u stool w/u - no BM x 3 rey - Rapid COVID screening --> negative - EGD/Colon in am Subjective Allergies: Coded Allergies: No Known Allergies (Unverified , 06/19/20) Subjective Seen this am no BM x 3 days advised re significant anemia GI w/u outlined patient agreed to proceed Objective Last 24 Hour Vital Signs Date Time Temp Pulse Resp B/P (MAP) Pulse Ox O2 Delivery O2 Flow Rate FiO2 06/21/20 20:00 101.6 85 18 126/72 (90) 97 06/21/20 16:02 99.5 81 20 137/80 (99) 97 06/21/20 12:00 97.9 68 20 125/80 (95) 99 06/21/20 09:00 Room Air 06/21/20 08:00 98.4 77 21 111/63 (79) 99 06/21/20 05:40 100.6 06/21/20 04:00 99.4 96 19 118/76 (90) 97 06/21/20 00:00 99.6 82 18 116/75 (89) 100 06/20/20 21:30 99.3 Intake and Output 06/20/20 06/21/20 19:00 07:00 Intake Total 800 ml 2837.5 ml Output Total 1500 ml 1500 ml Balance -700 ml 1337.5 ml Intake Oral 800 ml 1600 ml IV Total 1237.5 ml Output Urine Total 1500 ml 1500 ml # Voids 1 Laboratory Tests 06/21/20 04:45: Anti-Nuclear Antibody Screen [Pending] 06/21/20 04:55: White Blood Count 9.3, Red Blood Count 3.21L, Hemoglobin 8.1L, Hematocrit 25.4L , Mean Corpuscular Volume 79L, Mean Corpuscular Hemoglobin 25.2L, Mean Corpuscular Hemoglobin Concent 31.8L, Red Cell Distribution Width 13.2, Platelet Count 451H, Mean Platelet Volume 5.3L, Neutrophils (%) (Auto) 78.2H, Lymphocytes (%) (Auto) 15.5L, Monocytes (%) (Auto) 5.7, Eosinophils (%) (Auto) 0.1, Basophils (%) (Auto) 0.5, Sodium Level 135L, Potassium Level 4.0, Chloride Level 98, Carbon Dioxide Level 25, Anion Gap 12, Blood Urea Nitrogen 8, Creatinine 1.3, Estimat Glomerular Filtration Rate > 60, Glucose Level 103, Calcium Level 8.3L, Iron Level 55, Total Iron Binding Capacity 456H, Percent Iron Saturation 12L, Unsaturated Iron Binding 401H, Total Bilirubin 0.5, Aspartate Amino Transf (AST/SGOT) 42H, Alanine Aminotransferase (ALT/SGPT) 77, Alkaline Phosphatase 97, Total Creatine Kinase 46, Total Protein 7.6, Albumin 2.1L, Globulin 5.5, Albumin/Globulin Ratio 0.4L, Hepatitis A IgM Antibody [ Pending], Hepatitis B Surface Antigen [Pending], Hepatitis B Core IgM Antibody [ Pending], Hepatitis C Antibody [Pending] Height (Feet): 6 Weight (Pounds): 138 Objective WDWN AA man NCAT supple CTA RR Abd soft NT ND no edema Partha Harris MD Jun 21, 2020 21:06
[2020-06-22] VITALS (11 sets, daily range): BP systolic 104–135; BP diastolic 68–86
[2020-06-22] MEDS: Piperacillin/Tazobactam 3.375 GM in NS 110 ML IVPB SCH ×3 (05:01→21:39)
[2020-06-22 05:36] LABS: BASOPHILS % (AUTO) 0.6 % (0.0-2.0); EOSINOPHILS % (AUTO) 0.3 % (0.0-3.0); HEMATOCRIT 27.6 % (42.0-52.0); HEMOGLOBIN 8.8 G/DL (14.2-18.0); LYMPHOCYTES % (AUTO) 16.7 % (20.0-45.0); MEAN CORPUSCULAR VOLUME 79 FL (80-99); MONOCYTES % (AUTO) 7.8 % (1.0-10.0); NEUTROPHILS % (AUTO) 74.7 % (45.0-75.0); PLATELET COUNT 492 K/UL (150-450); RED BLOOD COUNT 3.47 M/UL (4.70-6.10); RED CELL DISTRIBUTION WIDTH 13.6 % (11.6-14.8)
[2020-06-22 05:52] LABS: ALANINE AMINOTRANSFERASE 64 U/L (12-78); ALBUMIN 2.2 G/DL (3.4-5.0); ALBUMIN/GLOBULIN RATIO 0.4 (1.0-2.7); ALKALINE PHOSPHATASE 84 U/L (46-116); ANION GAP 10 mmol/L (5-15); ASPARTATE AMINO TRANSFERASE 36 U/L (15-37); BILIRUBIN,TOTAL 0.4 MG/DL (0.2-1.0); BLOOD UREA NITROGEN 3 mg/dL (7-18); CALCIUM 8.6 MG/DL (8.5-10.1); CARBON DIOXIDE 26 MMOL/L (21-32); CHLORIDE 102 MMOL/L (98-107); CREATININE 1.2 MG/DL (0.55-1.30); POTASSIUM 3.9 MMOL/L (3.5-5.1); SODIUM 138 MMOL/L (136-145)
[2020-06-22] MEDS: D5NS 1,000 ML IV SCH ×3 (06:03→22:03)
[2020-06-22] MEDS ORDERED: fentaNYL 100 mcg/2 mL IV PRN (07:30)
[2020-06-22] MEDS ORDERED: Atropine Inj 1mg/10ml Syr IV PRN (07:30)
[2020-06-22] MEDS ORDERED: Lidocaine 1% MPF 10mg/ml 5ml ONE (07:30)
[2020-06-22] MEDS ORDERED: DiphenhydrAMINE 50mg/ml Inj IVP PRN (07:30)
[2020-06-22] MEDS ORDERED: Midazolam 2mg/2ml Inj IVP PRN (07:30)
--- NOTE | 2020-06-22 07:47 | Anethesia Preoperative Eval ---
Anesthesia Pre-op PMH/ROS General Date of Evaluation: Jun 22, 2020 Time of Evaluation: 07:24 Anesthesiologist: nora ASA Score: ASA 2 Mallampati Score Class I : Soft palate, uvula, fauces, pillars visible Class II: Soft palate, uvula, fauces visible Class III: Soft palate, base of uvula visible Class IV: Only hard plate visible Mallampati Classification: Class II Surgeon: adele Diagnosis: anemia, colitis Surgical Procedure: egd/colonoscopy Anesthesia History: none Social History: smoking - former smoker Family History: no anesthesia problems Allergies: Coded Allergies: No Known Allergies (Unverified , 06/19/20) Medications: see eMAR Patient NPO?: Yes Past Medical History Gastrointestinal/Genitourinary: Reports: other - colitis, nepholithiasis, proctitis, uti, custitis, enteritis, abdominal pain Hematology/Immune: Reports: other - sepsis, covid-19 negative Anesthesia Pre-op Phys. Exam Physician Exam Last Vital Signs Date Time Temp Pulse Resp B/P (MAP) Pulse Ox O2 Delivery O2 Flow Rate FiO2 06/22/20 04:00 98.9 71 18 114/72 (86) 97 06/21/20 21:03 Room Air Constitutional: NAD Neurologic: CN 2-12 intact Cardiovascular: RRR Respiratory: CTA Gastrointestinal: S/NT/ND Airway Exam Mallampati Score: Class II MO: full Neck: flexible TMD: 2fb ROM: full Teeth: intact Anesthesia Pre-op A/P Labs Microbiology Date/Time Source Procedure Growth Status 06/19/20 15:05 Blood Blood Culture - Preliminary NO GROWTH AFTER 24 HOURS Resulted 06/20/20 22:15 Nasopharynx SARS-CoV-2 RdRp Gene Assay - Final Complete 06/19/20 14:20 Urine,Clean Catch Urine Culture - Preliminary NO GROWTH AFTER 24 HOURS Resulted Hematology Test 06/22/20 04:34 White Blood Count 9.0 K/UL (4.8-10.8) Red Blood Count 3.47 M/UL (4.70-6.10) L Hemoglobin 8.8 G/DL (14.2-18.0) L Hematocrit 27.6 % (42.0-52.0) L Mean Corpuscular Volume 79 FL (80-99) L Mean Corpuscular Hemoglobin 25.3 PG (27.0-31.0) L Mean Corpuscular Hemoglobin Concent 31.9 G/DL (32.0-36.0) L Red Cell Distribution Width 13.6 % (11.6-14.8) Platelet Count 492 K/UL (150-450) H Mean Platelet Volume 4.8 FL (6.5-10.1) L Neutrophils (%) (Auto) 74.7 % (45.0-75.0) Lymphocytes (%) (Auto) 16.7 % (20.0-45.0) L Monocytes (%) (Auto) 7.8 % (1.0-10.0) Eosinophils (%) (Auto) 0.3 % (0.0-3.0) Basophils (%) (Auto) 0.6 % (0.0-2.0) Chemistry Test 06/22/20 04:34 Sodium Level 138 MMOL/L (136-145) Potassium Level 3.9 MMOL/L (3.5-5.1) Chloride Level 102 MMOL/L (98-107) Carbon Dioxide Level 26 MMOL/L (21-32) Anion Gap 10 mmol/L (5-15) Blood Urea Nitrogen 3 mg/dL (7-18) L Creatinine 1.2 MG/DL (0.55-1.30) Estimat Glomerular Filtration Rate > 60 mL/min (>60) Glucose Level 106 MG/DL (74-106) Calcium Level 8.6 MG/DL (8.5-10.1) Total Bilirubin 0.4 MG/DL (0.2-1.0) Aspartate Amino Transf (AST/SGOT) 36 U/L (15-37) Alanine Aminotransferase (ALT/SGPT) 64 U/L (12-78) Alkaline Phosphatase 84 U/L (46-116) Total Protein 7.7 G/DL (6.4-8.2) Albumin 2.2 G/DL (3.4-5.0) L Globulin 5.5 g/dL Albumin/Globulin Ratio 0.4 (1.0-2.7) L Risk Assessment & Plan Assessment: asa2 Plan: mac Status Change Before Surgery: No Pre-Antibiotics Drug: Urmila Martin MD Jun 22, 2020 07:47
[2020-06-22] MEDS ORDERED: NS 500ML IVPB ONE ×2 (07:53→08:28)
--- NOTE | 2020-06-22 08:03 | Urology Progress Note ---
Assessment/Plan Status: stable Assessment/Plan: 1. Bladder wall thickening, presumably cystitis. 2. Nephrolithiasis, nonobstructive. 3. Mild lower urinary tract symptoms. 4. Possible neurogenic bladder. 5. Proteinuria. 6. Hematuria. 7. Rule out UTI. monitor clinically abx as ordered f/u on blood cx cysto later monitor labs Subjective Allergies: Coded Allergies: GARLIC (Verified Allergy, Severe, Anaphylaxis, 06/22/20) EDEMA Subjective all noted, feels fair, voiding for EGD/colon today Objective Last 24 Hour Vital Signs Date Time Temp Pulse Resp B/P (MAP) Pulse Ox O2 Delivery O2 Flow Rate FiO2 06/22/20 04:00 98.9 71 18 114/72 (86) 97 06/22/20 00:00 99.7 79 18 121/68 (85) 97 06/21/20 21:03 Room Air 06/21/20 21:00 100.6 06/21/20 20:00 101.6 85 18 126/72 (90) 97 06/21/20 16:02 99.5 81 20 137/80 (99) 97 06/21/20 12:00 97.9 68 20 125/80 (95) 99 06/21/20 09:00 Room Air Intake and Output 06/21/20 06/22/20 19:00 07:00 Intake Total 6240 ml 900 ml Output Total 1700 ml Balance 4540 ml 900 ml Intake Oral 6240 ml IV Total 900 ml Output Urine Total 1700 ml # Bowel Movements 5 2 Microbiology Date/Time Source Procedure Growth Status 06/19/20 15:05 Blood Blood Culture - Preliminary NO GROWTH AFTER 24 HOURS Resulted 06/20/20 22:15 Nasopharynx SARS-CoV-2 RdRp Gene Assay - Final Complete 06/19/20 14:20 Urine,Clean Catch Urine Culture - Final NO GROWTH AFTER 48 HOURS Complete Current Medications Medications (Trade) Dose Ordered Sig/Thai Route PRN Reason Start Time Stop Time Status Last Admin Dose Admin Acetaminophen (Tylenol) 650 mg Q4H PRN ORAL Mild Pain (Pain Scale 1-3) 06/19/20 23:30 07/19/20 16:59 06/21/20 20:10 Acetaminophen (Tylenol) 650 mg Q4H PRN ORAL Mild Pain (Pain Scale 1-3) 06/22/20 07:30 UNV Al Hydroxide/Mg Hydroxide (Mylanta) 15 ml Q1H PRN ORAL gi upset 06/22/20 07:30 UNV Atropine Sulfate (Atropine) 0.5 mg Q5M PRN IV bpm less than 45 06/22/20 07:30 UNV Dextrose/Sodium Chloride 1,000 ml @ 100 mls/hr Q10H IV 06/19/20 18:00 07/19/20 17:59 06/22/20 06:03 Diphenhydramine HCl (Benadryl) 25 mg Q15M PRN IVP Itching 06/22/20 07:30 UNV Famotidine (Pepcid) 20 mg DAILY ORAL 06/19/20 18:00 09/17/20 17:59 06/21/20 09:36 Fentanyl Citrate (Sublimaze 100 mcg/2 mL) 25 mcg Q10M PRN IV Moderate Pain (Pain Scale 4-6) 06/22/20 07:30 UNV Heparin Sodium (Porcine) (Heparin 5000 units/ml) 5,000 units EVERY 12 HOURS SUBQ 06/19/20 21:00 08/03/20 20:59 06/21/20 09:39 Hydralazine HCl (Apresoline) 5 mg Q30M PRN IV SBP>160 OR___/DBP>90 OR___ 06/22/20 07:30 UNV Midazolam HCl (Versed 2mg/2ml vial) 1 mg Q15M PRN IVP For Anxiety 06/22/20 07:30 UNV Ondansetron HCl (Zofran) 4 mg Q1H PRN IVP Nausea & Vomiting 06/22/20 07:30 UNV Ondansetron HCl (Zofran) 4 mg Q6H PRN IVP Nausea & Vomiting 06/19/20 17:00 07/19/20 16:59 06/21/20 13:20 Piperacillin Sod/ Tazobactam Sod 3.375 gm/Sodium Chloride 110 ml @ 27.5 mls/hr EVERY 8 HOURS IVPB 06/19/20 22:00 06/24/20 21:59 06/22/20 05:01 Polyethylene Glycol/ Electrolytes (Nulytely) 4,000 ml ONCE ORAL 06/21/20 10:00 07/21/20 09:59 8/25/20 10:14 Sodium Chloride 1,000 ml @ 10 mls/hr Q24H IVLG 06/22/20 07:22 06/22/20 09:21 UNV Laboratory Tests 06/22/20 04:34: White Blood Count 9.0, Red Blood Count 3.47L, Hemoglobin 8.8L, Hematocrit 27.6L , Mean Corpuscular Volume 79L, Mean Corpuscular Hemoglobin 25.3L, Mean Corpuscular Hemoglobin Concent 31.9L, Red Cell Distribution Width 13.6, Platelet Count 492H, Mean Platelet Volume 4.8L, Neutrophils (%) (Auto) 74.7, Lymphocytes (%) (Auto) 16.7L, Monocytes (%) (Auto) 7.8, Eosinophils (%) (Auto) 0.3, Basophils (%) (Auto) 0.6, Sodium Level 138, Potassium Level 3.9, Chloride Level 102, Carbon Dioxide Level 26, Anion Gap 10, Blood Urea Nitrogen 3L, Creatinine 1.2, Estimat Glomerular Filtration Rate > 60, Glucose Level 106, Calcium Level 8.6, Total Bilirubin 0.4, Aspartate Amino Transf (AST/SGOT) 36, Alanine Aminotransferase (ALT/SGPT) 64, Alkaline Phosphatase 84, Total Protein 7.7, Albumin 2.2L, Globulin 5.5, Albumin/Globulin Ratio 0.4L Height (Feet): 6 Height (Inches): 0.00 Weight (Pounds): 140 Objective exam stable Jonathan Gutiérrez MD Jun 22, 2020 08:03
--- NOTE | 2020-06-22 08:04 | General Progress Note ---
Assessment/Plan Status: stable Assessment/Plan: Assessment - Abdominal pain - proctitis per CT appearance - severe microcytic anemia - abnormal LFT - now normalized, Hepatitis serologies negative Recommendations - EGD/Colon today - Rapid COVID screening --> negative - follow labs Subjective Allergies: Coded Allergies: GARLIC (Verified Allergy, Severe, Anaphylaxis, 06/22/20) EDEMA Subjective Seen this am pre EGD/Colon (++) BM with prep LFT now normal Objective Last 24 Hour Vital Signs Date Time Temp Pulse Resp B/P (MAP) Pulse Ox O2 Delivery O2 Flow Rate FiO2 06/22/20 04:00 98.9 71 18 114/72 (86) 97 06/22/20 00:00 99.7 79 18 121/68 (85) 97 06/21/20 21:03 Room Air 06/21/20 21:00 100.6 06/21/20 20:00 101.6 85 18 126/72 (90) 97 06/21/20 16:02 99.5 81 20 137/80 (99) 97 06/21/20 12:00 97.9 68 20 125/80 (95) 99 06/21/20 09:00 Room Air Intake and Output 06/21/20 06/22/20 19:00 07:00 Intake Total 6240 ml 1000 ml Output Total 1700 ml Balance 4540 ml 1000 ml Intake Oral 6240 ml IV Total 1000 ml Output Urine Total 1700 ml # Bowel Movements 5 2 Laboratory Tests 06/22/20 04:34: White Blood Count 9.0, Red Blood Count 3.47L, Hemoglobin 8.8L, Hematocrit 27.6L , Mean Corpuscular Volume 79L, Mean Corpuscular Hemoglobin 25.3L, Mean Corpuscular Hemoglobin Concent 31.9L, Red Cell Distribution Width 13.6, Platelet Count 492H, Mean Platelet Volume 4.8L, Neutrophils (%) (Auto) 74.7, Lymphocytes (%) (Auto) 16.7L, Monocytes (%) (Auto) 7.8, Eosinophils (%) (Auto) 0.3, Basophils (%) (Auto) 0.6, Sodium Level 138, Potassium Level 3.9, Chloride Level 102, Carbon Dioxide Level 26, Anion Gap 10, Blood Urea Nitrogen 3L, Creatinine 1.2, Estimat Glomerular Filtration Rate > 60, Glucose Level 106, Calcium Level 8.6, Total Bilirubin 0.4, Aspartate Amino Transf (AST/SGOT) 36, Alanine Aminotransferase (ALT/SGPT) 64, Alkaline Phosphatase 84, Total Protein 7.7, Albumin 2.2L, Globulin 5.5, Albumin/Globulin Ratio 0.4L Height (Feet): 6 Height (Inches): 0.00 Weight (Pounds): 140 Objective WDWN AA man NCAT supple CTA RR Abd soft NT ND no edema Partha Harris MD Jun 22, 2020 08:04
--- NOTE | 2020-06-22 08:05 | Pre-Procedure Note/Attestation ---
Pre-Procedure Note/Attestation Complete Prior to Procedure Planned Procedure: not applicable Procedure Narrative: EGD Colon Indications for Procedure Pre-Operative Diagnosis: anemia Attestation I attest that I discussed the nature of the procedure; its benefits; risks and complications; and alternatives (and the risks and benefits of such alternatives ), prior to the procedure, with the patient (or the patient's legal sales representative wire rope). I attest that, if there was a reasonable possibility of needing a blood transfusion, the patient (or the patient's legal sales representative wire rope) was given the [facility] standardized written summary, pursuant to the [place] Blood Safety Act ([place] Health and Safety Code # 1645, as amended). I attest that I re-evaluated the patient just prior to the surgery and that there has been no change in the patient's H&P, except as documented below: Partha Harris MD Jun 22, 2020 08:05
--- NOTE | 2020-06-22 08:44 | Endoscopy Procedure Note ---
Endoscopy Procedure Note General Indication for Procedure: anemia Procedures Performed: EGD, colonoscopy Operative Findings/Diagnosis: one possible distal TI erosion Specimen: yes Pt Tolerated Procedure Well: Yes Estimated Blood Loss: none Anesthesia Anesthesiologist: Zaki Horne Anesthesia: moderate sedation Medications Medication Given: see anesthesia record Inserted Devices Implant(s) used?: No GI Core Measures 50 yrs or older w/o bx or poly: Not Applicable 10yrs. F/U recommended: Not Applicable If not recommended, why?: Partha Harris MD Jun 22, 2020 08:44
--- NOTE | 2020-06-22 08:45 | Brief Operative Note ---
Immediate Post Operative Note Operative Note Chief Complaint: anemia Pre-op Diagnosis: anemia Procedure: esophagogastroduodenoscopy colon Post-op Diagnosis: anemia Surgeon: adele Anesthesiologist: susan bill Anesthesia: MAC Specimen: yes Complications: none Condition: stable Fluids: recorded Estimated Blood Loss: none Drains: none Implant(s) used?: No Partha Harris MD Jun 22, 2020 08:45
[2020-06-22] MEDS: Heparin 5000 units/ml inj SUBQ SCH ×2 (09:00→11:38)
[2020-06-22] MEDS: Nulytely 4L ORAL SCH (10:00)
--- NOTE | 2020-06-22 10:00 | Immediate Post-Op Evaluation ---
Immediate Post-Op Evalulation Immediate Post-Op Evalulation Procedure: egd/colonoscopy w/bx Date of Evaluation: Jun 22, 2020 Time of Evaluation: 09:04 IV Fluids: 750ml 0.9ns Blood Products: none Estimated Blood Loss: negligible Blood Pressure Systolic: 111 Blood Pressure Diastolic: 69 Pulse Rate: 94 Respiratory Rate: 18 O2 Sat by Pulse Oximetry: 99 Temperature (Fahrenheit): 98.9 Pain Score (1-10): 0 Nausea: No Vomiting: No Complications none Patient Status: awake, reacts, patent Hydration Status: adequate Drug: Urmila Martin MD Jun 22, 2020 10:00
--- NOTE | 2020-06-22 10:01 | 48 Hour Post Anesthesia Eval ---
Post Anesthesia Evaluation Procedure: egd/colonoscopy w/bx Date of Evaluation: Jun 22, 2020 Time of Evaluation: 09:06 Blood Pressure Systolic: 109 0: 72 Pulse Rate: 98 Respiratory Rate: 18 Temperature (Fahrenheit): 98.9 O2 Sat by Pulse Oximetry: 99 Airway: patent Nausea: No Vomiting: No Pain Intensity: 0 Hydration Status: adequate Cardiopulmonary Status: stable Mental Status/LOC: patient returned to baseline Post-Anesthesia Complications: none Follow-up care needed: N/A Urmila Newsome MD Jun 22, 2020 10:01
--- NOTE | 2020-06-22 11:07 | Infectious Diseases Prog Note ---
"Assessment/Plan Assessment/Plan antibiotics : zosyn 06.19.20 - A 1. UTI | cystitis 2. bilateral nephrolithiasis 3. leucocytosis resolved 4. fever improving P 1. continue zosyn 2. will follow up cultures Subjective Constitutional: Denies: fever, chills Respiratory: Reports: other - sore throat; Denies: shortness of breath, dry cough Gastrointestinal/Abdominal: Denies: nausea, vomiting, diarrhea Musculoskeletal: Reports: pain - decreased abdominal Allergies: Coded Allergies: No Known Allergies (Unverified , 06/19/20) Objective Last 24 Hour Vital Signs Date Time Temp Pulse Resp B/P (MAP) Pulse Ox O2 Delivery O2 Flow Rate FiO2 06/22/20 10:01 98 18 99 06/22/20 10:00 94 18 99 06/22/20 09:15 101.3 100 17 126/83 (97) 99 06/22/20 09:13 98.2 98 16 108/75 100 Room Air 06/22/20 09:05 94 17 104/75 100 Room Air 06/22/20 09:00 Room Air 06/22/20 09:00 94 15 106/73 100 Room Air 06/22/20 08:55 98 16 109/72 100 Nasal Cannula 3 06/22/20 08:52 98.9 94 14 111/69 100 Nasal Cannula 3 06/22/20 04:00 98.9 71 18 114/72 (86) 97 06/22/20 00:00 99.7 79 18 121/68 (85) 97 06/21/20 21:03 Room Air 06/21/20 21:00 100.6 06/21/20 20:00 101.6 85 18 126/72 (90) 97 06/21/20 16:02 99.5 81 20 137/80 (99) 97 06/21/20 12:00 97.9 68 20 125/80 (95) 99 Height (Feet): 6 Height (Inches): 0.00 Weight (Pounds): 140 Respiratory/Chest: lungs clear Cardiovascular: normal rate, regular rhythm, no gallop/murmur Abdomen: soft, non tender Extremities: no edema Microbiology Date/Time Source Procedure Growth Status 06/19/20 15:05 Blood Blood Culture - Preliminary NO GROWTH AFTER 24 HOURS Resulted 06/19/20 14:50 Blood Blood Culture - Preliminary NO GROWTH AFTER 24 HOURS Resulted 06/20/20 22:15 Nasopharynx SARS-CoV-2 RdRp Gene Assay - Final Complete 06/19/20 14:20 Urine,Clean Catch Urine Culture - Final NO GROWTH AFTER 48 HOURS Complete Laboratory Tests Test 06/22/20 04:34 White Blood Count 9.0 K/UL (4.8-10.8) Red Blood Count 3.47 M/UL (4.70-6.10) L Hemoglobin 8.8 G/DL (14.2-18.0) L Hematocrit 27.6 % (42.0-52.0) L Mean Corpuscular Volume 79 FL (80-99) L Mean Corpuscular Hemoglobin 25.3 PG (27.0-31.0) L Mean Corpuscular Hemoglobin Concent 31.9 G/DL (32.0-36.0) L Red Cell Distribution Width 13.6 % (11.6-14.8) Platelet Count 492 K/UL (150-450) H Mean Platelet Volume 4.8 FL (6.5-10.1) L Neutrophils (%) (Auto) 74.7 % (45.0-75.0) Lymphocytes (%) (Auto) 16.7 % (20.0-45.0) L Monocytes (%) (Auto) 7.8 % (1.0-10.0) Eosinophils (%) (Auto) 0.3 % (0.0-3.0) Basophils (%) (Auto) 0.6 % (0.0-2.0) Sodium Level 138 MMOL/L (136-145) Potassium Level 3.9 MMOL/L (3.5-5.1) Chloride Level 102 MMOL/L (98-107) Carbon Dioxide Level 26 MMOL/L (21-32) Anion Gap 10 mmol/L (5-15) Blood Urea Nitrogen 3 mg/dL (7-18) L Creatinine 1.2 MG/DL (0.55-1.30) Estimat Glomerular Filtration Rate > 60 mL/min (>60) Glucose Level 106 MG/DL (74-106) Calcium Level 8.6 MG/DL (8.5-10.1) Total Bilirubin 0.4 MG/DL (0.2-1.0) Aspartate Amino Transf (AST/SGOT) 36 U/L (15-37) Alanine Aminotransferase (ALT/SGPT) 64 U/L (12-78) Alkaline Phosphatase 84 U/L (46-116) Total Protein 7.7 G/DL (6.4-8.2) Albumin 2.2 G/DL (3.4-5.0) L Globulin 5.5 g/dL Albumin/Globulin Ratio 0.4 (1.0-2.7) L Current Medications Medications (Trade) Dose Ordered Sig/Thai Route PRN Reason Start Time Stop Time Status Last Admin Dose Admin Acetaminophen (Tylenol) 650 mg Q4H PRN ORAL Mild Pain (Pain Scale 1-3)/FEV 06/22/20 10:00 07/19/20 09:59 06/22/20 10:06 Dextrose/Sodium Chloride 1,000 ml @ 100 mls/hr Q10H IV 06/19/20 18:00 07/19/20 17:59 06/22/20 06:03 Famotidine (Pepcid) 20 mg DAILY ORAL 06/19/20 18:00 09/17/20 17:59 06/22/20 09:37 Heparin Sodium (Porcine) (Heparin 5000 units/ml) 5,000 units EVERY 12 HOURS SUBQ 06/19/20 21:00 08/03/20 20:59 06/21/20 09:39 Ondansetron HCl (Zofran) 4 mg Q6H PRN IVP Nausea & Vomiting 06/19/20 17:00 07/19/20 16:59 06/21/20 13:20 Piperacillin Sod/ Tazobactam Sod 3.375 gm/Sodium Chloride 110 ml @ 27.5 mls/hr EVERY 8 HOURS IVPB 06/19/20 22:00 06/24/20 21:59 06/22/20 05:01 Polyethylene Glycol/ Electrolytes (Nulytely) 4,000 ml ONCE ORAL 06/21/20 10:00 07/21/20 09:59 06/21/20 10:14 Israel Biggs MD Jun 22, 2020 11:07"
--- NOTE | 2020-06-22 12:45 | Procedure Note ---
DATE OF PROCEDURE: 06/22/2020 GASTROENTEROLOGY PROCEDURE REPORT PROCEDURE: Upper gastrointestinal endoscopy with enteroscopy and biopsy as well as colonoscopy with biopsy. SURGEON: Partha Harris MD. ANESTHESIA: Please see the separate anesthesiologist notes by Dr. Solomon. PRE-ENDOSCOPIC DIAGNOSES: 1. Anemia. 2. Proctitis, seen on CT scan. 3. Abdominal pain. POST-ENDOSCOPIC DIAGNOSES: 1. Normal upper endoscopy, status post random biopsies of the duodenum and antrum. 2. Normal colonoscopy with no evidence of proctitis by endoscopic visualization. 3. One possible erosion in the distal terminal ileum and otherwise normal terminal ileum to about 15 cm, status post biopsy. 4. Status post random biopsies of the right colon, left colon, and rectum. DESCRIPTION OF PROCEDURE: The procedure, its risks, indications, alternatives, and possible complications including but not limited to bleeding, infection, perforation, , and anesthesia complications were explained to the patient and informed consent was obtained. The patient was then sedated in the left lateral decubitus position and a diagnostic upper endoscope was introduced through oropharynx and advanced to the duodenum without difficulty. The endoscope was then gradually withdrawn and the mucosa examined carefully. Examination of the upper gastrointestinal mucosa did not reveal any abnormalities. Biopsies of the third portion of duodenum and antrum were sent to pathology for review. The endoscope was removed. The rectal exam was done. The colonoscope was introduced into the rectum and advanced to 15 cm into the terminal ileum without difficulty. The colonoscope was then gradually withdrawn and the mucosa examined carefully. Examination of the colonic mucosa did not reveal any abnormalities. Specifically, there was no evidence of proctitis. The terminal ileum showed one possible erosion at the distal end. This was biopsied. The remainder of the terminal ileum was unremarkable. Biopsies of the terminal ileum, right colon, left colon, and rectum were sent to pathology for review. The colonoscope was removed. The patient was sent to recovery in good condition. COMPLICATIONS: None. ASSESSMENT: There are no the findings on examination to explain the patient's anemia. There was one possible erosion in the distal terminal ileum. This appeared to be a insignificant finding. Biopsies will be evaluated to rule out evidence of microscopic disease. The consideration can be made through the capsule endoscopy at a later date. RECOMMENDATIONS: 1. Follow up biopsy results. 2. Resume oral diet. 3. Monitor CBC. 4. Replace iron. Partha Harris M.D. DR: LACHO JOB#: [id number] CC:
[2020-06-22 15:01] LABS: BASOPHILS % (AUTO) 0.4 % (0.0-2.0); EOSINOPHILS % (AUTO) 0.6 % (0.0-3.0); HEMATOCRIT 26.2 % (42.0-52.0); HEMOGLOBIN 8.3 G/DL (14.2-18.0); LYMPHOCYTES % (AUTO) 18.5 % (20.0-45.0); MEAN CORPUSCULAR VOLUME 80 FL (80-99); MONOCYTES % (AUTO) 9.8 % (1.0-10.0); NEUTROPHILS % (AUTO) 70.7 % (45.0-75.0); PLATELET COUNT 461 K/UL (150-450); RED BLOOD COUNT 3.28 M/UL (4.70-6.10); RED CELL DISTRIBUTION WIDTH 13.7 % (11.6-14.8); WHITE BLOOD COUNT 8.5 K/UL (4.8-10.8)
[2020-06-22] MEDS ORDERED: Heparin 25,000u/D5W 500ml 500 ML IV SCH ×2 (15:30→21:30)
[2020-06-22] MEDS ORDERED: Heparin 5000 units/ml inj IV SCH ×2 (15:30→22:00)
[2020-06-22 15:34] LABS: INR 1.3 (0.9-1.1)
--- NOTE | 2020-06-22 16:23 | Diagnostic Imaging Report ---
Indication: Lower back, leg, and abdominal pain Technique: Grayscale and duplex images of the bilateral lower extremity veins Comparison: none Findings: Hypoechoic occlusive thrombus is seen filling and expanding the right common femoral, femoral, and popliteal veins. This results in noncompressibility. Thrombus is also seen to extend into the calf veins. Patent greater saphenous vein. On the left, grayscale and duplex images demonstrate no evidence of intraluminal thrombus. Normal phasic Doppler waveforms, demonstrating normal augmentation response. Normal compressibility Impression: Positive for right common femoral, femoral, and popliteal deep venous thrombosis. Patient's nurse already aware
[2020-06-22] MEDS: Heparin 25,000u/D5W 500ml 500 ML IV SCH (21:46)
[2020-06-23] VITALS: BP 110/78
[2020-06-23 04:18] VITALS: BP 128/68
[2020-06-23] MEDS ORDERED: Nulytely 4L ORAL SCH (06:00)
[2020-06-23] MEDS: Piperacillin/Tazobactam 3.375 GM in NS 110 ML IVPB SCH ×3 (06:03→22:09)
[2020-06-23 06:05] LABS: BASOPHILS % (AUTO) 0.6 % (0.0-2.0); EOSINOPHILS % (AUTO) 0.7 % (0.0-3.0); HEMATOCRIT 27.2 % (42.0-52.0); HEMOGLOBIN 8.6 G/DL (14.2-18.0); MEAN CORPUSCULAR VOLUME 80 FL (80-99); MONOCYTES % (AUTO) 8.8 % (1.0-10.0); NEUTROPHILS % (AUTO) 59.9 % (45.0-75.0); PLATELET COUNT 498 K/UL (150-450); RED CELL DISTRIBUTION WIDTH 13.6 % (11.6-14.8); WHITE BLOOD COUNT 9.5 K/UL (4.8-10.8)
[2020-06-23 08:00] VITALS: BP 116/75
--- NOTE | 2020-06-23 08:10 | Urology Progress Note ---
Assessment/Plan Status: stable Assessment/Plan: 1. Bladder wall thickening, presumably cystitis. 2. Nephrolithiasis, nonobstructive. 3. Mild lower urinary tract symptoms. 4. Possible neurogenic bladder. 5. Proteinuria. 6. Hematuria. 7. Rule out UTI. monitor clinically abx as ordered f/u on blood cx cysto later monitor labs on hep drip Subjective Allergies: Coded Allergies: GARLIC (Verified Allergy, Severe, Anaphylaxis, 06/22/20) EDEMA Subjective all noted, feels fair, voiding EGD/colon yest for capsule endoscopy today Objective Last 24 Hour Vital Signs Date Time Temp Pulse Resp B/P (MAP) Pulse Ox O2 Delivery O2 Flow Rate FiO2 06/23/20 04:18 98.6 78 16 128/68 (88) 100 06/23/20 00:00 98.7 80 20 110/78 (89) 97 06/22/20 22:10 100.0 06/22/20 21:00 Room Air 06/22/20 20:00 100.0 97 16 135/86 (102) 98 06/22/20 16:00 98.5 73 16 129/85 (100) 100 06/22/20 11:56 98.7 06/22/20 11:44 101.0 99 18 107/71 (83) 99 06/22/20 10:01 98 18 99 06/22/20 10:00 94 18 99 06/22/20 09:15 101.3 100 17 126/83 (97) 99 06/22/20 09:13 98.2 98 16 108/75 100 Room Air 06/22/20 09:05 94 17 104/75 100 Room Air 06/22/20 09:00 Room Air 06/22/20 09:00 94 15 106/73 100 Room Air 06/22/20 08:55 98 16 109/72 100 Nasal Cannula 3 06/22/20 08:52 98.9 94 14 111/69 100 Nasal Cannula 3 Intake and Output 06/22/20 06/23/20 19:00 07:00 Intake Total 2296.016 ml 374.004 ml Output Total 300 ml 800 ml Balance 1996.016 ml -425.996 ml Intake Oral 240 ml 350 ml IV Total 2056.016 ml 24.004 ml Output Urine Total 300 ml 800 ml Estimated Blood Loss 0 ml # Voids 1 Microbiology Date/Time Source Procedure Growth Status 06/19/20 15:05 Blood Blood Culture - Preliminary NO GROWTH AFTER 72 HOURS Resulted 06/20/20 22:15 Nasopharynx SARS-CoV-2 RdRp Gene Assay - Final Complete 06/19/20 14:20 Urine,Clean Catch Urine Culture - Final NO GROWTH AFTER 48 HOURS Complete Current Medications Medications (Trade) Dose Ordered Sig/Thai Route PRN Reason Start Time Stop Time Status Last Admin Dose Admin Acetaminophen (Tylenol) 650 mg Q4H PRN ORAL Mild Pain (Pain Scale 1-3)/FEV 06/22/20 10:00 07/19/20 09:59 06/22/20 21:40 Cetylpyridinium Chloride (Cepacol) 1 lozg Q4H PRN SAAD throat pain 06/22/20 19:45 09/20/20 19:44 Dextrose/Sodium Chloride 1,000 ml @ 100 mls/hr Q10H IV 06/19/20 18:00 07/19/20 17:59 06/22/20 22:03 Famotidine (Pepcid) 20 mg DAILY ORAL 06/19/20 18:00 09/17/20 17:59 06/22/20 09:37 Heparin Sodium/ Dextrose 500 ml @ 26.671 mls/ hr ADJUST PER PROTOCOL IV 06/22/20 22:00 07/22/20 15:29 06/22/20 21:46 Ondansetron HCl (Zofran) 4 mg Q6H PRN IVP Nausea & Vomiting 06/19/20 17:00 07/19/20 16:59 06/21/20 13:20 Piperacillin Sod/ Tazobactam Sod 3.375 gm/Sodium Chloride 110 ml @ 27.5 mls/hr EVERY 8 HOURS IVPB 06/19/20 22:00 06/24/20 21:59 06/23/20 06:03 Laboratory Tests 06/22/20 14:40: White Blood Count 8.5, Red Blood Count 3.28L, Hemoglobin 8.3L, Hematocrit 26.2L , Mean Corpuscular Volume 80, Mean Corpuscular Hemoglobin 25.3L, Mean Corpuscular Hemoglobin Concent 31.7L, Red Cell Distribution Width 13.7, Platelet Count 461H, Mean Platelet Volume 4.7L, Neutrophils (%) (Auto) 70.7, Lymphocytes (%) (Auto) 18.5L, Monocytes (%) (Auto) 9.8, Eosinophils (%) (Auto) 0.6, Basophils (%) (Auto) 0.4, Prothrombin Time 13.9H, Prothromb Time International Ratio 1.3H, Activated Partial Thromboplast Time 31, D-Dimer 13.96H 06/22/20 20:50: Activated Partial Thromboplast Time 59H 06/23/20 04:55: White Blood Count 9.5, Red Blood Count 3.40L, Hemoglobin 8.6L, Hematocrit 27.2L , Mean Corpuscular Volume 80, Mean Corpuscular Hemoglobin 25.2L, Mean Corpuscular Hemoglobin Concent 31.5L, Red Cell Distribution Width 13.6, Platelet Count 498H, Mean Platelet Volume 4.7L, Neutrophils (%) (Auto) 59.9, Lymphocytes (%) (Auto) 30.0, Monocytes (%) (Auto) 8.8, Eosinophils (%) (Auto) 0.7, Basophils (%) (Auto) 0.6, Activated Partial Thromboplast Time 68H Height (Feet): 6 Height (Inches): 0.00 Weight (Pounds): 147 Objective exam stable venous duplex (06/22) noted Jonathan Gutiérrez MD Jun 23, 2020 08:10
[2020-06-23] MEDS: Heparin 25,000u/D5W 500ml 500 ML IV SCH (09:22)
[2020-06-23] MEDS: D5NS 1,000 ML IV SCH ×3 (09:25→20:36)
[2020-06-23 12:00] VITALS: BP 108/74
--- NOTE | 2020-06-23 12:01 | General Progress Note ---
Assessment/Plan Status: stable Assessment/Plan: Assessment - Abdominal pain - proctitis per CT appearance --negative colonoscopy - severe microcytic anemia - negative EGD/Colon - abnormal LFT - now normalized, Hepatitis serologies negative - RLE DVT - suspect underlying disorder Recommendations - capsule endoscopy - IV heparin - follow labs - IV Fe Subjective Allergies: Coded Allergies: GARLIC (Verified Allergy, Severe, Anaphylaxis, 06/22/20) EDEMA Subjective Seen this am d/w patient re EGD/Colon results (R) LE swelling noted --> duplex showed DVT on IV heparin for capsule endo today Objective Last 24 Hour Vital Signs Date Time Temp Pulse Resp B/P (MAP) Pulse Ox O2 Delivery O2 Flow Rate FiO2 06/23/20 09:00 Room Air 06/23/20 08:00 98.1 80 20 116/75 (89) 98 06/23/20 04:18 98.6 78 16 128/68 (88) 100 06/23/20 00:00 98.7 80 20 110/78 (89) 97 06/22/20 22:10 100.0 06/22/20 21:00 Room Air 06/22/20 20:00 100.0 97 16 135/86 (102) 98 06/22/20 16:00 98.5 73 16 129/85 (100) 100 Intake and Output 06/22/20 06/23/20 19:00 07:00 Intake Total 2296.016 ml 374.004 ml Output Total 300 ml 800 ml Balance 1996.016 ml -425.996 ml Intake Oral 240 ml 350 ml IV Total 2056.016 ml 24.004 ml Output Urine Total 300 ml 800 ml Estimated Blood Loss 0 ml # Voids 1 Laboratory Tests 06/22/20 14:40: White Blood Count 8.5, Red Blood Count 3.28L, Hemoglobin 8.3L, Hematocrit 26.2L , Mean Corpuscular Volume 80, Mean Corpuscular Hemoglobin 25.3L, Mean Corpuscular Hemoglobin Concent 31.7L, Red Cell Distribution Width 13.7, Platelet Count 461H, Mean Platelet Volume 4.7L, Neutrophils (%) (Auto) 70.7, Lymphocytes (%) (Auto) 18.5L, Monocytes (%) (Auto) 9.8, Eosinophils (%) (Auto) 0.6, Basophils (%) (Auto) 0.4, Prothrombin Time 13.9H, Prothromb Time International Ratio 1.3H, Activated Partial Thromboplast Time 31, D-Dimer 13.96H 06/22/20 20:50: Activated Partial Thromboplast Time 59H 06/23/20 04:55: White Blood Count 9.5, Red Blood Count 3.40L, Hemoglobin 8.6L, Hematocrit 27.2L , Mean Corpuscular Volume 80, Mean Corpuscular Hemoglobin 25.2L, Mean Corpuscular Hemoglobin Concent 31.5L, Red Cell Distribution Width 13.6, Platelet Count 498H, Mean Platelet Volume 4.7L, Neutrophils (%) (Auto) 59.9, Lymphocytes (%) (Auto) 30.0, Monocytes (%) (Auto) 8.8, Eosinophils (%) (Auto) 0.7, Basophils (%) (Auto) 0.6, Activated Partial Thromboplast Time 68H Height (Feet): 6 Height (Inches): 0.00 Weight (Pounds): 147 Objective WDWN AA man NCAT supple CTA RR Abd soft NT ND (+) RLE edema Partha Harris MD Jun 23, 2020 12:01
--- NOTE | 2020-06-23 12:09 | Infectious Diseases Prog Note ---
Assessment/Plan Assessment/Plan A 1. Cystitis 2. bilateral nephrolithiasis 3. leucocytosis resolved 4. fever 5. Anemia P 1. continue Zosyn 2. will follow up cultures Subjective ROS Limited/Unobtainable: No Constitutional: Reports: fever, other - last night T=101 Gastrointestinal/Abdominal: Reports: diarrhea, other - having capsule eddoscopy Genitourinary: Reports: no symptoms Allergies: Coded Allergies: GARLIC (Verified Allergy, Severe, Anaphylaxis, 06/22/20) EDEMA Objective Last 24 Hour Vital Signs Date Time Temp Pulse Resp B/P (MAP) Pulse Ox O2 Delivery O2 Flow Rate FiO2 06/23/20 09:00 Room Air 06/23/20 08:00 98.1 80 20 116/75 (89) 98 06/23/20 04:18 98.6 78 16 128/68 (88) 100 06/23/20 00:00 98.7 80 20 110/78 (89) 97 06/22/20 22:10 100.0 06/22/20 21:00 Room Air 06/22/20 20:00 100.0 97 16 135/86 (102) 98 06/22/20 16:00 98.5 73 16 129/85 (100) 100 Height (Feet): 6 Height (Inches): 0.00 Weight (Pounds): 147 General Appearance: no acute distress HEENT: mucous membranes moist Respiratory/Chest: lungs clear Cardiovascular: normal rate Abdomen: soft, non tender Extremities: no edema Neurologic/Psychiatric: alert, oriented x 3, responsive Microbiology Date/Time Source Procedure Growth Status 06/20/20 22:15 Nasopharynx SARS-CoV-2 RdRp Gene Assay - Final Complete Laboratory Tests Test 06/22/20 14:40 06/22/20 20:50 06/23/20 04:55 White Blood Count 8.5 K/UL (4.8-10.8) 9.5 K/UL (4.8-10.8) Red Blood Count 3.28 M/UL (4.70-6.10) L 3.40 M/UL (4.70-6.10) L Hemoglobin 8.3 G/DL (14.2-18.0) L 8.6 G/DL (14.2-18.0) L Hematocrit 26.2 % (42.0-52.0) L 27.2 % (42.0-52.0) L Mean Corpuscular Volume 80 FL (80-99) 80 FL (80-99) Mean Corpuscular Hemoglobin 25.3 PG (27.0-31.0) L 25.2 PG (27.0-31.0) L Mean Corpuscular Hemoglobin Concent 31.7 G/DL (32.0-36.0) L 31.5 G/DL (32.0-36.0) L Red Cell Distribution Width 13.7 % (11.6-14.8) 13.6 % (11.6-14.8) Platelet Count 461 K/UL (150-450) H 498 K/UL (150-450) H Mean Platelet Volume 4.7 FL (6.5-10.1) L 4.7 FL (6.5-10.1) L Neutrophils (%) (Auto) 70.7 % (45.0-75.0) 59.9 % (45.0-75.0) Lymphocytes (%) (Auto) 18.5 % (20.0-45.0) L 30.0 % (20.0-45.0) Monocytes (%) (Auto) 9.8 % (1.0-10.0) 8.8 % (1.0-10.0) Eosinophils (%) (Auto) 0.6 % (0.0-3.0) 0.7 % (0.0-3.0) Basophils (%) (Auto) 0.4 % (0.0-2.0) 0.6 % (0.0-2.0) Prothrombin Time 13.9 SEC (9.30-11.50) H Prothromb Time International Ratio 1.3 (0.9-1.1) H Activated Partial Thromboplast Time 31 SEC (23-33) 59 SEC (23-33) H 68 SEC (23-33) H D-Dimer 13.96 mg/L FEU (0.00-0.49) H Current Medications Medications (Trade) Dose Ordered Sig/Thai Route PRN Reason Start Time Stop Time Status Last Admin Dose Admin Acetaminophen (Tylenol) 650 mg Q4H PRN ORAL Mild Pain (Pain Scale 1-3)/FEV 06/22/20 10:00 07/19/20 09:59 06/22/20 21:40 Cetylpyridinium Chloride (Cepacol) 1 lozg Q4H PRN SAAD throat pain 06/22/20 19:45 09/20/20 19:44 Dextrose/Sodium Chloride 1,000 ml @ 100 mls/hr Q10H IV 06/19/20 18:00 07/19/20 17:59 06/23/20 09:25 Famotidine (Pepcid) 20 mg DAILY ORAL 06/19/20 18:00 09/17/20 17:59 06/23/20 09:14 Heparin Sodium/ Dextrose 500 ml @ 26.671 mls/ hr ADJUST PER PROTOCOL IV 06/22/20 22:00 07/22/20 15:29 06/23/20 09:22 Iron Sucrose 100 mg/Sodium Chloride 60 ml @ 240 mls/hr BEDTIME IVPB 06/23/20 21:00 06/27/20 21:14 UNV Ondansetron HCl (Zofran) 4 mg Q6H PRN IVP Nausea & Vomiting 06/19/20 17:00 07/19/20 16:59 06/21/20 13:20 Piperacillin Sod/ Tazobactam Sod 3.375 gm/Sodium Chloride 110 ml @ 27.5 mls/hr EVERY 8 HOURS IVPB 06/19/20 22:00 06/24/20 21:59 06/23/20 06:03 Bruce Rodriguez MD Jun 23, 2020 12:09
[2020-06-23] MEDS ORDERED: D5NS 1000ml IV ONE (13:29)
[2020-06-23 16:00] VITALS: BP 108/74
--- NOTE | 2020-06-23 16:11 | General Progress Note ---
Assessment/Plan Problem List: (1) Hyponatremia ICD Codes: E87.1 - Hypo-osmolality and hyponatremia SNOMED: 27548622 (2) Proctitis ICD Codes: K62.89 - Other specified diseases of anus and rectum; E87.1 - Hypo- osmolality and hyponatremia SNOMED: 8847585, 40141474 (3) Abdominal pain ICD Codes: R10.9 - Unspecified abdominal pain SNOMED: 66742434 (4) Cystitis ICD Codes: N30.90 - Cystitis, unspecified without hematuria SNOMED: 86247410, 49083323 (5) Dehydration with hyponatremia ICD Codes: E86.0 - Dehydration; E87.1 - Hypo-osmolality and hyponatremia SNOMED: 59233281, 64082477 Status: stable Assessment/Plan: ivf iv abx follow up cultures PPI rx capsule endoscopy per GI tylenol for fevers monitor for bleeding transition to eliquis tomorrow if capsule endoscopy ok Subjective ROS Limited/Unobtainable: No Constitutional: Reports: fever, malaise HEENT: Reports: no symptoms Cardiovascular: Reports: no symptoms Respiratory: Reports: no symptoms Gastrointestinal/Abdominal: Reports: no symptoms Genitourinary: Reports: no symptoms Neurologic/Psychiatric: Reports: no symptoms Endocrine: Reports: no symptoms Hematologic/Lymphatic: Reports: no symptoms Allergies: Coded Allergies: GARLIC (Verified Allergy, Severe, Anaphylaxis, 06/22/20) EDEMA All Systems: reviewed and negative except above Subjective No events. Positive venous duplex of the leg noted. On heparin drip. Endoscopy unremarkable. Scheduled for capsule endoscopy. Fevers improving. On IV antibiotics. Transaminitis better Objective Last 24 Hour Vital Signs Date Time Temp Pulse Resp B/P (MAP) Pulse Ox O2 Delivery O2 Flow Rate FiO2 06/23/20 12:00 98.5 91 16 108/74 (85) 98 06/23/20 09:00 Room Air 06/23/20 08:00 98.1 80 20 116/75 (89) 98 06/23/20 04:18 98.6 78 16 128/68 (88) 100 06/23/20 00:00 98.7 80 20 110/78 (89) 97 06/22/20 22:10 100.0 06/22/20 21:00 Room Air 06/22/20 20:00 100.0 97 16 135/86 (102) 98 Intake and Output 06/22/20 06/23/20 19:00 07:00 Intake Total 2296.016 ml 374.004 ml Output Total 300 ml 800 ml Balance 1996.016 ml -425.996 ml Intake Oral 240 ml 350 ml IV Total 2056.016 ml 24.004 ml Output Urine Total 300 ml 800 ml Estimated Blood Loss 0 ml # Voids 1 Laboratory Tests 06/22/20 20:50: Activated Partial Thromboplast Time 59H 06/23/20 04:55: Activated Partial Thromboplast Time 68H, White Blood Count 9.5, Red Blood Count 3.40L, Hemoglobin 8.6L, Hematocrit 27.2L, Mean Corpuscular Volume 80, Mean Corpuscular Hemoglobin 25.2L, Mean Corpuscular Hemoglobin Concent 31.5L, Red Cell Distribution Width 13.6, Platelet Count 498H, Mean Platelet Volume 4.7L, Neutrophils (%) (Auto) 59.9, Lymphocytes (%) (Auto) 30.0, Monocytes (%) (Auto) 8.8, Eosinophils (%) (Auto) 0.7, Basophils (%) (Auto) 0.6 Height (Feet): 6 Height (Inches): 0.00 Weight (Pounds): 147 Objective General Appearance: WD/WN Neck: supple Cardiovascular: regular rhythm Respiratory/Chest: lungs clear Abdomen: normal bowel sounds, non tender, soft, no organomegaly, no mass, hyperactive bowel sounds Edema: no edema noted Arm (L), no edema noted Arm (R) Shree Conte MD Jun 23, 2020 16:11
[2020-06-23 20:00] VITALS: BP_SYST 121; BP_DIAS 13; BP_DIAS 72
[2020-06-23] MEDS: Iron Sucrose 100 MG in NS 55 ML IVPB SCH (20:35)
[2020-06-24] VITALS: BP 126/72
[2020-06-24] MEDS: Heparin 25,000u/D5W 500ml 500 ML IV SCH ×2 (03:53→22:55)
[2020-06-24 04:00] VITALS: BP 125/70
[2020-06-24 04:19] LABS: INR 1.4 (0.9-1.1)
[2020-06-24 04:24] LABS: HEMATOCRIT 23.7 % (42.0-52.0); HEMOGLOBIN 7.7 G/DL (14.2-18.0); MEAN CORPUSCULAR VOLUME 79 FL (80-99); PLATELET COUNT 468 K/UL (150-450); RED CELL DISTRIBUTION WIDTH 13.6 % (11.6-14.8); WHITE BLOOD COUNT 8.3 K/UL (4.8-10.8)
[2020-06-24] MEDS: Piperacillin/Tazobactam 3.375 GM in NS 110 ML IVPB SCH (04:59)
[2020-06-24 08:00] VITALS: BP 119/81
--- NOTE | 2020-06-24 09:04 | Urology Progress Note ---
Assessment/Plan Status: stable Assessment/Plan: 1. Bladder wall thickening, presumably cystitis. 2. Nephrolithiasis, nonobstructive. 3. Mild lower urinary tract symptoms. 4. Possible neurogenic bladder. 5. Proteinuria. 6. Hematuria. 7. Rule out UTI. monitor clinically abx as ordered f/u on blood cx cysto later monitor labs on hep drip Subjective Allergies: Coded Allergies: GARLIC (Verified Allergy, Severe, Anaphylaxis, 06/22/20) EDEMA Subjective all noted, feels fair, voiding Objective Last 24 Hour Vital Signs Date Time Temp Pulse Resp B/P (MAP) Pulse Ox O2 Delivery O2 Flow Rate FiO2 06/24/20 08:30 Room Air 06/24/20 08:00 98.2 66 18 119/81 (94) 98 06/24/20 04:00 98.6 75 16 125/70 (88) 96 06/24/20 02:44 97.8 06/24/20 00:00 97.8 79 20 126/72 (90) 98 06/23/20 21:00 Room Air 06/23/20 20:00 99.7 82 22 121/72 (88) 97 06/23/20 16:00 98.3 85 22 108/74 (85) 98 06/23/20 12:00 98.5 91 16 108/74 (85) 98 Intake and Output 06/23/20 06/24/20 19:00 07:00 Intake Total 1525.0 ml Output Total 780 ml Balance 745.0 ml Intake Oral 500 ml IV Total 1025.0 ml Output Urine Total 780 ml # Bowel Movements 1 Microbiology Date/Time Source Procedure Growth Status 06/19/20 15:05 Blood Blood Culture - Preliminary NO GROWTH AFTER 4 DAYS Resulted 06/20/20 22:15 Nasopharynx SARS-CoV-2 RdRp Gene Assay - Final Complete 06/19/20 14:20 Urine,Clean Catch Urine Culture - Final NO GROWTH AFTER 48 HOURS Complete Current Medications Medications (Trade) Dose Ordered Sig/Thai Route PRN Reason Start Time Stop Time Status Last Admin Dose Admin Acetaminophen (Tylenol) 650 mg Q4H PRN ORAL Mild Pain (Pain Scale 1-3)/FEV 06/22/20 10:00 07/19/20 09:59 06/24/20 02:14 Cetylpyridinium Chloride (Cepacol) 1 lozg Q4H PRN SAAD throat pain 06/22/20 19:45 09/20/20 19:44 06/24/20 08:48 Dextrose/Sodium Chloride 1,000 ml @ 75 mls/hr [id number] IV 06/23/20 16:15 07/23/20 16:14 06/23/20 20:36 Famotidine (Pepcid) 20 mg DAILY ORAL 06/19/20 18:00 09/17/20 17:59 06/24/20 08:45 Heparin Sodium/ Dextrose 500 ml @ 26.671 mls/ hr ADJUST PER PROTOCOL IV 06/22/20 22:00 07/22/20 15:29 06/24/20 03:53 Iron Sucrose 100 mg/Sodium Chloride 60 ml @ 240 mls/hr BEDTIME IVPB 06/23/20 21:00 06/27/20 21:14 06/23/20 20:35 Ondansetron HCl (Zofran) 4 mg Q6H PRN IVP Nausea & Vomiting 06/19/20 17:00 07/19/20 16:59 06/21/20 13:20 Piperacillin Sod/ Tazobactam Sod 3.375 gm/Sodium Chloride 110 ml @ 27.5 mls/hr EVERY 8 HOURS IVPB 06/19/20 22:00 06/24/20 21:59 06/24/20 04:59 Laboratory Tests 06/24/20 03:56: White Blood Count 8.3, Red Blood Count 3.00L, Hemoglobin 7.7L, Hematocrit 23.7L , Mean Corpuscular Volume 79L, Mean Corpuscular Hemoglobin 25.6L, Mean Corpuscular Hemoglobin Concent 32.5, Red Cell Distribution Width 13.6, Platelet Count 468H, Mean Platelet Volume 4.7L, Neutrophils (%) (Auto) , Lymphocytes (%) (Auto) , Monocytes (%) (Auto) , Eosinophils (%) (Auto) , Basophils (%) (Auto) , Prothrombin Time 14.7H, Prothromb Time International Ratio 1.4H, Activated Partial Thromboplast Time 80H, D-Dimer 7.31H, Ferritin 793H, Vitamin B12 Level 593, Folate 10.1 Height (Feet): 6 Height (Inches): 0.00 Weight (Pounds): 147 Objective exam stable venous duplex (06/22) noted Jonathan Gutiérrez MD Jun 24, 2020 09:04
--- NOTE | 2020-06-24 11:02 | Infectious Diseases Prog Note ---
"Assessment/Plan Assessment/Plan antibiotics : zosyn 06.19.20 - A 1. UTI | cystitis s/p rx 2. bilateral nephrolithiasis 3. leucocytosis resolved 4. fever improving 5. ? EBV infection P 1. d/c zosyn 2. start acyclovir, prednisone 3. EBV serology 4, mono spot test 5. CMV serology 6. will follow up cultures Subjective Constitutional: Denies: fever, chills Respiratory: Reports: other - sore throat; Denies: shortness of breath, dry cough Gastrointestinal/Abdominal: Denies: nausea, vomiting, diarrhea Allergies: Coded Allergies: GARLIC (Verified Allergy, Severe, Anaphylaxis, 06/22/20) EDEMA Objective Last 24 Hour Vital Signs Date Time Temp Pulse Resp B/P (MAP) Pulse Ox O2 Delivery O2 Flow Rate FiO2 06/24/20 08:30 Room Air 06/24/20 08:00 98.2 66 18 119/81 (94) 98 06/24/20 04:00 98.6 75 16 125/70 (88) 96 06/24/20 02:44 97.8 06/24/20 00:00 97.8 79 20 126/72 (90) 98 06/23/20 21:00 Room Air 06/23/20 20:00 99.7 82 22 121/72 (88) 97 06/23/20 16:00 98.3 85 22 108/74 (85) 98 06/23/20 12:00 98.5 91 16 108/74 (85) 98 Height (Feet): 6 Height (Inches): 0.00 Weight (Pounds): 147 HEENT: tonsils swollen, other Respiratory/Chest: lungs clear Cardiovascular: normal rate, regular rhythm, no gallop/murmur Abdomen: soft, non tender Extremities: no edema Laboratory Tests Test 06/24/20 03:56 White Blood Count 8.3 K/UL (4.8-10.8) Red Blood Count 3.00 M/UL (4.70-6.10) L Hemoglobin 7.7 G/DL (14.2-18.0) L Hematocrit 23.7 % (42.0-52.0) L Mean Corpuscular Volume 79 FL (80-99) L Mean Corpuscular Hemoglobin 25.6 PG (27.0-31.0) L Mean Corpuscular Hemoglobin Concent 32.5 G/DL (32.0-36.0) Red Cell Distribution Width 13.6 % (11.6-14.8) Platelet Count 468 K/UL (150-450) H Mean Platelet Volume 4.7 FL (6.5-10.1) L Neutrophils (%) (Auto) % (45.0-75.0) Lymphocytes (%) (Auto) % (20.0-45.0) Monocytes (%) (Auto) % (1.0-10.0) Eosinophils (%) (Auto) % (0.0-3.0) Basophils (%) (Auto) % (0.0-2.0) Prothrombin Time 14.7 SEC (9.30-11.50) H Prothromb Time International Ratio 1.4 (0.9-1.1) H Activated Partial Thromboplast Time 80 SEC (23-33) H D-Dimer 7.31 mg/L FEU (0.00-0.49) H Ferritin 793 NG/ML (8-388) H Vitamin B12 Level 593 PG/ML (193-986) Folate 10.1 NG/ML (8.6-58.9) Current Medications Medications (Trade) Dose Ordered Sig/Thai Route PRN Reason Start Time Stop Time Status Last Admin Dose Admin Acetaminophen (Tylenol) 650 mg Q4H PRN ORAL Mild Pain (Pain Scale 1-3)/FEV 06/22/20 10:00 07/19/20 09:59 06/24/20 02:14 Cetylpyridinium Chloride (Cepacol) 1 lozg Q4H PRN SAAD throat pain 06/22/20 19:45 09/20/20 19:44 06/24/20 08:48 Dextrose/Sodium Chloride 1,000 ml @ 75 mls/hr [id number] IV 06/23/20 16:15 07/23/20 16:14 06/23/20 20:36 Famotidine (Pepcid) 20 mg DAILY ORAL 06/19/20 18:00 09/17/20 17:59 06/24/20 08:45 Heparin Sodium/ Dextrose 500 ml @ 26.671 mls/ hr ADJUST PER PROTOCOL IV 06/22/20 22:00 07/22/20 15:29 06/24/20 03:53 Iron Sucrose 100 mg/Sodium Chloride 60 ml @ 240 mls/hr BEDTIME IVPB 06/23/20 21:00 06/27/20 21:14 06/23/20 20:35 Ondansetron HCl (Zofran) 4 mg Q6H PRN IVP Nausea & Vomiting 06/19/20 17:00 07/19/20 16:59 06/21/20 13:20 Piperacillin Sod/ Tazobactam Sod 3.375 gm/Sodium Chloride 110 ml @ 27.5 mls/hr EVERY 8 HOURS IVPB 06/19/20 22:00 06/24/20 21:59 06/24/20 04:59 Israel Biggs MD Jun 24, 2020 11:02"
[2020-06-24 11:44] VITALS: BP 129/87
--- NOTE | 2020-06-24 13:59 | Consultation ---
History of Present Illness General Chief Complaint: Abdominal Pain Present Illness Allergies: Coded Allergies: GARLIC (Verified Allergy, Severe, Anaphylaxis, 06/22/20) EDEMA Patient History Healthcare decision maker Resuscitation status Advanced Directive on File Physical Exam Last 24 Hour Vital Signs Date Time Temp Pulse Resp B/P (MAP) Pulse Ox O2 Delivery O2 Flow Rate FiO2 06/24/20 11:44 99.0 73 20 129/87 (101) 93 06/24/20 08:30 Room Air 06/24/20 08:00 98.2 66 18 119/81 (94) 98 06/24/20 04:00 98.6 75 16 125/70 (88) 96 06/24/20 02:44 97.8 06/24/20 00:00 97.8 79 20 126/72 (90) 98 06/23/20 21:00 Room Air 06/23/20 20:00 99.7 82 22 121/72 (88) 97 06/23/20 16:00 98.3 85 22 108/74 (85) 98 Intake and Output 06/23/20 06/24/20 19:00 07:00 Intake Total 1525.0 ml Output Total 780 ml Balance 745.0 ml Intake Oral 500 ml IV Total 1025.0 ml Output Urine Total 780 ml # Bowel Movements 1 Laboratory Tests Test 06/24/20 03:56 06/24/20 10:00 White Blood Count 8.3 K/UL (4.8-10.8) Red Blood Count 3.00 M/UL (4.70-6.10) L Hemoglobin 7.7 G/DL (14.2-18.0) L Hematocrit 23.7 % (42.0-52.0) L Mean Corpuscular Volume 79 FL (80-99) L Mean Corpuscular Hemoglobin 25.6 PG (27.0-31.0) L Mean Corpuscular Hemoglobin Concent 32.5 G/DL (32.0-36.0) Red Cell Distribution Width 13.6 % (11.6-14.8) Platelet Count 468 K/UL (150-450) H Mean Platelet Volume 4.7 FL (6.5-10.1) L Neutrophils (%) (Auto) % (45.0-75.0) Lymphocytes (%) (Auto) % (20.0-45.0) Monocytes (%) (Auto) % (1.0-10.0) Eosinophils (%) (Auto) % (0.0-3.0) Basophils (%) (Auto) % (0.0-2.0) Prothrombin Time 14.7 SEC (9.30-11.50) H Prothromb Time International Ratio 1.4 (0.9-1.1) H Activated Partial Thromboplast Time 80 SEC (23-33) H D-Dimer 7.31 mg/L FEU (0.00-0.49) H Ferritin 793 NG/ML (8-388) H Vitamin B12 Level 593 PG/ML (193-986) Folate 10.1 NG/ML (8.6-58.9) Lalo-Saucedo DNA Quant copies/mL Pending Lalo-Saucedo Quant PCR Plasma log10 Pending Monoscreen Pending Height (Feet): 6 Height (Inches): 0.00 Weight (Pounds): 147 Medications Current Medications Medications (Trade) Dose Ordered Sig/Thai Route PRN Reason Start Time Stop Time Status Last Admin Dose Admin Acetaminophen (Tylenol) 650 mg Q4H PRN ORAL Mild Pain (Pain Scale 1-3)/FEV 06/22/20 10:00 07/19/20 09:59 06/24/20 02:14 Acyclovir (Zovirax) 800 mg EVERY 8 HOURS ORAL 06/24/20 14:00 07/24/20 13:59 06/24/20 13:04 Cetylpyridinium Chloride (Cepacol) 1 lozg Q4H PRN SAAD throat pain 06/22/20 19:45 09/20/20 19:44 06/24/20 08:48 Dextrose/Sodium Chloride 1,000 ml @ 75 mls/hr [id number] IV 06/23/20 16:15 07/23/20 16:14 06/23/20 20:36 Famotidine (Pepcid) 20 mg DAILY ORAL 06/19/20 18:00 09/17/20 17:59 06/24/20 08:45 Heparin Sodium/ Dextrose 500 ml @ 26.671 mls/ hr ADJUST PER PROTOCOL IV 06/22/20 22:00 07/22/20 15:29 06/24/20 03:53 Iron Sucrose 100 mg/Sodium Chloride 60 ml @ 240 mls/hr BEDTIME IVPB 06/23/20 21:00 06/27/20 21:14 06/23/20 20:35 Ondansetron HCl (Zofran) 4 mg Q6H PRN IVP Nausea & Vomiting 06/19/20 17:00 07/19/20 16:59 06/21/20 13:20 Prednisone (predniSONE) 40 mg DAILY ORAL 06/24/20 12:00 07/24/20 11:59 06/24/20 13:01 Assessment/Plan Assessment/Plan: Hematology Consultation REQ : Shree Conte C: Dvt of the lower leg DOS 06/24/2020 ID 25-year-old -[place] male with past medical history of kidney stones that was diagnosed April 28 [place] presents with chief complaint of intermittent left flank pain for the past 2 weeks. He states that he had some hematuria associated with chills but no fever. He is sexually active/monogamous with 1 partner. He was recently checked for STDs and found to be negative. He is denying any concern for STD at this time. Denies penile discharge, scrotal lesion, testicular pain, chest pain, shortness of breath, melena, hematochezia or other symptoms. Patient is tolerating normal diet. The patient's symptoms were gradual onset, severity was moderate, duration since 2 weeks. Noted to have a dvt of the Positive for right common femoral, femoral, and popliteal deep venous thrombosis. Now is on heparin gtt. Past medical history: Kidney stones Past surgical history: Denies Smoking: Denies Alcohol use: Denies Drug use: Denies Review of systems: CONST: No fevers +chills, No night sweats PULMONARY: No productive cough, No shortness of breath CARDIAC: No chest pain, No palpitations GI: + vomiting, + diarrhea , No melena_or_BRBPR : No dysuria, No hematuria, No discharge NEURO: No new_focal_weakness_or_numbness, No confusion, No vision changes 14 point Review of Systems is otherwise negative except per HPI Physical Exam: Vitals: reviewed General: NAD HEENT: nc, at Neck: supple Chest: clear breath sounds bilaterally Cardiovascular: RRR, no s3, s4 Abdomen: soft, nontender, nd Extremities: no cce, normal range of motion Neuro: alert and oriented Labs noted Imaging: reviewed in emr CT A/P CT scan shows cystitis, proctitis, enteritis/ileus. There are also several nonobstructing kidney stones Venous duplex: shows dvt x 3 Assessment and Recs # Right common femoral, femoral, and popliteal deep venous thrombosis. Now is on heparin gtt. --> also is on iv iron, if endoscopy is negative, consider eliquis v xarelto --> agree in young male is very unusual to get dvts, would need a hypercoag workup --> hypercoag w/u for PROTEIN C/S, Factor V Leidin, Prothrombin gene mutation, esr, crp, steve consider as outpatient --> anticoag for 3 months total and reimage as needed is still symptomatic after 3 months # Anemia of iron deficiency, unspecified rule out gi bleed --> obtain a anemi panel, has been ordered --> will/have begun on iv iron and continue x 5 doses --> endoscopy was completed for capsulse endoscopy --> hgb goal is >7, transfuse as needed --> trend CBC daily to make sure no major acute drop --> no evidence of hemolysis noted # Sepsis --> as per id, abx # Cystitis --> uro aware # Hyponatremia # Dehydration with hyponatremia # Nephrolithiasis # Abdominal pain, improved The timing of this note does not necessarily reflect the time of the patient was seen. Greatly appreciate consultation. Tima Logan MD Jun 24, 2020 13:58
--- NOTE | 2020-06-24 14:45 | General Progress Note ---
Assessment/Plan Problem List: (1) Hyponatremia ICD Codes: E87.1 - Hypo-osmolality and hyponatremia SNOMED: 37249650 (2) Proctitis ICD Codes: K62.89 - Other specified diseases of anus and rectum; E87.1 - Hypo- osmolality and hyponatremia SNOMED: 7828303, 92097627 (3) Abdominal pain ICD Codes: R10.9 - Unspecified abdominal pain SNOMED: 03797809 (4) Cystitis ICD Codes: N30.90 - Cystitis, unspecified without hematuria SNOMED: 65296685, 44424539 (5) Dehydration with hyponatremia ICD Codes: E86.0 - Dehydration; E87.1 - Hypo-osmolality and hyponatremia SNOMED: 66286726, 94125886 Status: stable Assessment/Plan: ivf iv abx follow up cultures PPI rx follow up capsule endoscopy results tylenol for fevers monitor for bleeding transition to eliquis tomorrow if capsule endoscopy ok heme eval for hypercoag w/u follow up ebv acyclovir per ID d/w mother(rn) at length- has hx of recurrent pharyngitis Subjective ROS Limited/Unobtainable: No Constitutional: Reports: malaise HEENT: Reports: no symptoms Cardiovascular: Reports: no symptoms Respiratory: Reports: no symptoms Gastrointestinal/Abdominal: Reports: no symptoms Genitourinary: Reports: no symptoms Neurologic/Psychiatric: Reports: no symptoms Endocrine: Reports: no symptoms Hematologic/Lymphatic: Reports: anemia Allergies: Coded Allergies: GARLIC (Verified Allergy, Severe, Anaphylaxis, 06/22/20) EDEMA All Systems: reviewed and negative except above Subjective There have been no overnight events. Patient completed capsule endoscopy. Denies bleeding. No diarrhea. H&H slightly lower today. No fevers chills chest pain. Complains of sore throat. Objective Last 24 Hour Vital Signs Date Time Temp Pulse Resp B/P (MAP) Pulse Ox O2 Delivery O2 Flow Rate FiO2 06/24/20 11:44 99.0 73 20 129/87 (101) 93 06/24/20 08:30 Room Air 06/24/20 08:00 98.2 66 18 119/81 (94) 98 06/24/20 04:00 98.6 75 16 125/70 (88) 96 06/24/20 02:44 97.8 06/24/20 00:00 97.8 79 20 126/72 (90) 98 06/23/20 21:00 Room Air 06/23/20 20:00 99.7 82 22 121/72 (88) 97 06/23/20 16:00 98.3 85 22 108/74 (85) 98 Intake and Output 06/23/20 06/24/20 19:00 07:00 Intake Total 1525.0 ml Output Total 780 ml Balance 745.0 ml Intake Oral 500 ml IV Total 1025.0 ml Output Urine Total 780 ml # Bowel Movements 1 Laboratory Tests 06/24/20 03:56: White Blood Count 8.3, Red Blood Count 3.00L, Hemoglobin 7.7L, Hematocrit 23.7L , Mean Corpuscular Volume 79L, Mean Corpuscular Hemoglobin 25.6L, Mean Corpuscular Hemoglobin Concent 32.5, Red Cell Distribution Width 13.6, Platelet Count 468H, Mean Platelet Volume 4.7L, Neutrophils (%) (Auto) , Lymphocytes (%) (Auto) , Monocytes (%) (Auto) , Eosinophils (%) (Auto) , Basophils (%) (Auto) , Prothrombin Time 14.7H, Prothromb Time International Ratio 1.4H, Activated Partial Thromboplast Time 80H, D-Dimer 7.31H, Ferritin 793H, Vitamin B12 Level 593, Folate 10.1 06/24/20 10:00: Llao-Saucedo DNA Quant copies/mL [Pending], Lalo-Saucedo Quant PCR Plasma log10 [Pending], Monoscreen [Pending] Height (Feet): 6 Height (Inches): 0.00 Weight (Pounds): 147 Objective General Appearance: WD/WN Neck: supple Cardiovascular: regular rhythm Respiratory/Chest: lungs clear Abdomen: normal bowel sounds, non tender, soft, no organomegaly, no mass, hyperactive bowel sounds Edema: no edema noted Arm (L), no edema noted Arm (R) Shree Conte MD Jun 24, 2020 14:45
[2020-06-24] MEDS: D5NS 1,000 ML IV SCH (14:46)
--- NOTE | 2020-06-24 15:21 | Diagnostic Imaging Report ---
Indication: Left leg pain Technique: Grayscale and duplex images of the left lower extremity veins Comparison: Bilateral lower extremity venous scan dated 06/22/2020 Findings: On the left, grayscale and duplex images demonstrate no evidence of intraluminal thrombus. Normal phasic Doppler waveforms, demonstrating normal augmentation response and no evidence of valvular insufficiency. Greater saphenous vein(s) and tibial veins are patent. Normal compressibility. Impression: Negative for evidence of left lower extremity deep venous thrombosis, unchanged from previous day's exam Please note exam of the previous day did demonstrate right lower extremity deep venous thrombosis
[2020-06-24 16:00] VITALS: BP 127/67
--- NOTE | 2020-06-24 17:07 | Diagnostic Imaging Report ---
Indication: Chest pain Technique: One view of the chest Comparison: none Findings: Lungs and pleural spaces are clear. Heart size is normal. Impression: No acute process
[2020-06-24 20:00] VITALS: BP 125/65
--- NOTE | 2020-06-24 20:38 | General Progress Note ---
Assessment/Plan Status: stable Assessment/Plan: Assessment - ulcerative pharyngitis - Abdominal pain - resolved - proctitis per CT appearance -- negative colonoscopy - severe microcytic anemia - negative EGD/Colon, capsule done/pending - abnormal LFT - now normalized, Hepatitis serologies negative - RLE DVT - suspect underlying disorder Recommendations - capsule endoscopy results Saturday - IV heparin --> Eliquis if H&H stable - Heme Onc w/u - ID w/u and Rx - follow labs Subjective Allergies: Coded Allergies: GARLIC (Verified Allergy, Severe, Anaphylaxis, 06/22/20) EDEMA Subjective Feels weak c/o new onset sore throat started last few days says gets recurrent sore throats at home capsule study completed - results early next week d/w PMD and ID Objective Last 24 Hour Vital Signs Date Time Temp Pulse Resp B/P (MAP) Pulse Ox O2 Delivery O2 Flow Rate FiO2 06/24/20 16:00 98.1 87 20 127/67 (87) 95 06/24/20 11:44 99.0 73 20 129/87 (101) 93 06/24/20 08:30 Room Air 06/24/20 08:00 98.2 66 18 119/81 (94) 98 06/24/20 04:00 98.6 75 16 125/70 (88) 96 06/24/20 02:44 97.8 06/24/20 00:00 97.8 79 20 126/72 (90) 98 06/23/20 21:00 Room Air Intake and Output 06/23/20 06/24/20 19:00 07:00 Intake Total 1525.0 ml Output Total 780 ml Balance 745.0 ml Intake Oral 500 ml IV Total 1025.0 ml Output Urine Total 780 ml # Bowel Movements 1 Laboratory Tests 06/24/20 03:56: White Blood Count 8.3, Red Blood Count 3.00L, Hemoglobin 7.7L, Hematocrit 23.7L , Mean Corpuscular Volume 79L, Mean Corpuscular Hemoglobin 25.6L, Mean Corpuscular Hemoglobin Concent 32.5, Red Cell Distribution Width 13.6, Platelet Count 468H, Mean Platelet Volume 4.7L, Neutrophils (%) (Auto) , Lymphocytes (%) (Auto) , Monocytes (%) (Auto) , Eosinophils (%) (Auto) , Basophils (%) (Auto) , Prothrombin Time 14.7H, Prothromb Time International Ratio 1.4H, Activated Partial Thromboplast Time 80H, D-Dimer 7.31H, Ferritin 793H, Vitamin B12 Level 593, Folate 10.1 06/24/20 10:00: Lalo-Saucedo DNA Quant copies/mL [Pending], Lalo-Saucedo Quant PCR Plasma log10 [Pending], Monoscreen [Pending] Height (Feet): 6 Height (Inches): 0.00 Weight (Pounds): 147 Objective WDWN AA man NCAT. (+) ulcerative pharyngitis supple CTA RR Abd soft NT ND (+) RLE edema Partha Harris MD Jun 24, 2020 20:38
[2020-06-24] MEDS: Iron Sucrose 100 MG in NS 55 ML IVPB SCH (21:42)
[2020-06-25] VITALS: BP 118/76
[2020-06-25 04:00] VITALS: BP 120/74
[2020-06-25 04:25] LABS: BASOPHILS % (AUTO) 0.3 % (0.0-2.0); HEMATOCRIT 27.1 % (42.0-52.0); HEMOGLOBIN 8.6 G/DL (14.2-18.0); LYMPHOCYTES % (AUTO) 13.9 % (20.0-45.0); MEAN CORPUSCULAR VOLUME 79 FL (80-99); MONOCYTES % (AUTO) 6.1 % (1.0-10.0); NEUTROPHILS % (AUTO) 79.7 % (45.0-75.0); PLATELET COUNT 551 K/UL (150-450); RED BLOOD COUNT 3.43 M/UL (4.70-6.10); RED CELL DISTRIBUTION WIDTH 13.6 % (11.6-14.8); WHITE BLOOD COUNT 7.5 K/UL (4.8-10.8)
[2020-06-25] MEDS: D5NS 1,000 ML IV SCH (06:00)
--- NOTE | 2020-06-25 07:43 | General Progress Note ---
Assessment/Plan Problem List: (1) Hyponatremia ICD Codes: E87.1 - Hypo-osmolality and hyponatremia SNOMED: 92254607 (2) Proctitis ICD Codes: K62.89 - Other specified diseases of anus and rectum; E87.1 - Hypo- osmolality and hyponatremia SNOMED: 2666998, 67629192 (3) Abdominal pain ICD Codes: R10.9 - Unspecified abdominal pain SNOMED: 23039265 (4) Cystitis ICD Codes: N30.90 - Cystitis, unspecified without hematuria SNOMED: 48610083, 57648471 (5) Dehydration with hyponatremia ICD Codes: E86.0 - Dehydration; E87.1 - Hypo-osmolality and hyponatremia SNOMED: 82012653, 32500464 Status: stable Assessment/Plan: dc ivf dc heparin drip follow up cultures PPI rx follow up capsule endoscopy results tylenol for fevers monitor for bleeding heme appreciated follow up ebv acyclovir per ID d/w mother(rn) at length- has hx of recurrent pharyngitis dc planning today if ok with all Subjective ROS Limited/Unobtainable: No Constitutional: Reports: weakness HEENT: Reports: no symptoms Cardiovascular: Reports: no symptoms Respiratory: Reports: no symptoms Gastrointestinal/Abdominal: Reports: no symptoms Genitourinary: Reports: no symptoms Neurologic/Psychiatric: Reports: no symptoms Endocrine: Reports: no symptoms Hematologic/Lymphatic: Reports: no symptoms Allergies: Coded Allergies: GARLIC (Verified Allergy, Severe, Anaphylaxis, 06/22/20) EDEMA All Systems: reviewed and negative except above Subjective all noted. w/o complaints. no bleeding. cxr neg. wants to go home. no fever or chills. no sob Objective Last 24 Hour Vital Signs Date Time Temp Pulse Resp B/P (MAP) Pulse Ox O2 Delivery O2 Flow Rate FiO2 06/25/20 04:00 97.8 72 20 120/74 (89) 98 06/25/20 00:00 97.5 75 20 118/76 (90) 98 06/24/20 21:59 98.1 06/24/20 21:00 Room Air 06/24/20 20:00 100.0 80 20 125/65 (85) 96 06/24/20 16:00 98.1 87 20 127/67 (87) 95 06/24/20 11:44 99.0 73 20 129/87 (101) 93 06/24/20 08:30 Room Air 06/24/20 08:00 98.2 66 18 119/81 (94) 98 Intake and Output 06/24/20 06/25/20 19:00 07:00 Intake Total 1395 ml 250 ml Output Total 800 ml 500 ml Balance 595 ml -250 ml Intake Oral 700 ml 250 ml IV Total 695 ml Output Urine Total 800 ml 500 ml # Voids 2 # Bowel Movements 1 1 Laboratory Tests 06/24/20 10:00: Lalo-Saucedo DNA Quant copies/mL [Pending], Lalo-Saucedo Quant PCR Plasma log10 [Pending], Monoscreen [Pending] 06/25/20 03:45: White Blood Count 7.5, Red Blood Count 3.43L, Hemoglobin 8.6L, Hematocrit 27.1L , Mean Corpuscular Volume 79L, Mean Corpuscular Hemoglobin 25.1L, Mean Corpuscular Hemoglobin Concent 31.8L, Red Cell Distribution Width 13.6, Platelet Count 551H, Mean Platelet Volume 4.8L, Neutrophils (%) (Auto) 79.7H, Lymphocytes (%) (Auto) 13.9L, Monocytes (%) (Auto) 6.1, Eosinophils (%) (Auto) 0.0, Basophils (%) (Auto) 0.3, Activated Partial Thromboplast Time 83H Height (Feet): 6 Height (Inches): 0.00 Weight (Pounds): 147 Objective General Appearance: WD/WN Neck: supple Cardiovascular: regular rhythm Respiratory/Chest: lungs clear Abdomen: normal bowel sounds, non tender, soft, no organomegaly, no mass, hyperactive bowel sounds Edema: no edema noted Arm (L), no edema noted Arm (R) Shree Conte MD Jun 25, 2020 07:43
[2020-06-25 08:00] VITALS: BP 103/70
--- NOTE | 2020-06-25 08:50 | Urology Progress Note ---
Assessment/Plan Status: stable Assessment/Plan: 1. Bladder wall thickening, presumably cystitis. 2. Nephrolithiasis, nonobstructive. 3. Mild lower urinary tract symptoms. 4. Possible neurogenic bladder. 5. Proteinuria. 6. Hematuria. 7. Rule out UTI. monitor clinically s/p abx cysto later monitor labs eliquis and acyclovir added Subjective Allergies: Coded Allergies: GARLIC (Verified Allergy, Severe, Anaphylaxis, 06/22/20) EDEMA Subjective all noted, feels fair, voiding Objective Last 24 Hour Vital Signs Date Time Temp Pulse Resp B/P (MAP) Pulse Ox O2 Delivery O2 Flow Rate FiO2 06/25/20 04:00 97.8 72 20 120/74 (89) 98 06/25/20 00:00 97.5 75 20 118/76 (90) 98 06/24/20 21:59 98.1 06/24/20 21:00 Room Air 06/24/20 20:00 100.0 80 20 125/65 (85) 96 06/24/20 16:00 98.1 87 20 127/67 (87) 95 06/24/20 11:44 99.0 73 20 129/87 (101) 93 Intake and Output 06/24/20 06/25/20 19:00 07:00 Intake Total 1395 ml 250 ml Output Total 800 ml 500 ml Balance 595 ml -250 ml Intake Oral 700 ml 250 ml IV Total 695 ml Output Urine Total 800 ml 500 ml # Voids 2 # Bowel Movements 1 1 Microbiology Date/Time Source Procedure Growth Status 06/19/20 15:05 Blood Blood Culture - Final NO GROWTH AFTER 5 DAYS Complete 06/23/20 21:00 Throat Throat Culture - Preliminary NO BETA STREP ISOLATED. Resulted 06/19/20 14:20 Urine,Clean Catch Urine Culture - Final NO GROWTH AFTER 48 HOURS Complete Current Medications Medications (Trade) Dose Ordered Sig/Thai Route PRN Reason Start Time Stop Time Status Last Admin Dose Admin Acetaminophen (Tylenol) 650 mg Q4H PRN ORAL Mild Pain (Pain Scale 1-3)/FEV 06/22/20 10:00 07/19/20 09:59 06/25/20 06:00 Acyclovir (Zovirax) 800 mg EVERY 8 HOURS ORAL 06/24/20 14:00 07/24/20 13:59 06/25/20 06:00 Apixaban (Eliquis) 10 mg BID ORAL 06/25/20 09:00 09/23/20 08:59 Cetylpyridinium Chloride (Cepacol) 1 lozg Q4H PRN SAAD throat pain 06/22/20 19:45 09/20/20 19:44 06/24/20 08:48 Famotidine (Pepcid) 20 mg DAILY ORAL 06/19/20 18:00 09/17/20 17:59 06/24/20 08:45 Iron Sucrose 100 mg/Sodium Chloride 60 ml @ 240 mls/hr BEDTIME IVPB 06/23/20 21:00 06/27/20 21:14 06/24/20 21:42 Ondansetron HCl (Zofran) 4 mg Q6H PRN IVP Nausea & Vomiting 06/19/20 17:00 07/19/20 16:59 06/21/20 13:20 Prednisone (predniSONE) 40 mg DAILY ORAL 06/24/20 12:00 07/24/20 11:59 06/24/20 13:01 Laboratory Tests 06/24/20 10:00: Lalo-Saucedo DNA Quant copies/mL [Pending], Lalo-Saucedo Quant PCR Plasma log10 [Pending], Monoscreen [Pending] 06/25/20 03:45: White Blood Count 7.5, Red Blood Count 3.43L, Hemoglobin 8.6L, Hematocrit 27.1L , Mean Corpuscular Volume 79L, Mean Corpuscular Hemoglobin 25.1L, Mean Corpuscular Hemoglobin Concent 31.8L, Red Cell Distribution Width 13.6, Platelet Count 551H, Mean Platelet Volume 4.8L, Neutrophils (%) (Auto) 79.7H, Lymphocytes (%) (Auto) 13.9L, Monocytes (%) (Auto) 6.1, Eosinophils (%) (Auto) 0.0, Basophils (%) (Auto) 0.3, Activated Partial Thromboplast Time 83H Height (Feet): 6 Height (Inches): 0.00 Weight (Pounds): 147 Objective exam stable venous duplex (06/22) noted Jonathan Gutiérrez MD Jun 25, 2020 08:50
[2020-06-25] MEDS: Eliquis 5mg tablet ORAL SCH ×2 (09:59→17:38)
[2020-06-25 12:00] VITALS: BP 110/80
--- NOTE | 2020-06-25 13:15 | General Progress Note ---
Assessment/Plan Status: stable Assessment/Plan: Assessment - ulcerative pharyngitis - Abdominal pain - resolved - proctitis per CT appearance -- negative colonoscopy - severe microcytic anemia - negative EGD/Colon, capsule done/pending - abnormal LFT - now normalized, Hepatitis serologies negative - RLE DVT - suspect underlying disorder Recommendations - capsule endoscopy results Saturday - IV heparin --> Eliquis if H&H stable - Heme Onc w/u - ID w/u and Rx - follow labs Subjective Allergies: Coded Allergies: GARLIC (Verified Allergy, Severe, Anaphylaxis, 06/22/20) EDEMA Subjective No new complaints no melena for discharge today Objective Last 24 Hour Vital Signs Date Time Temp Pulse Resp B/P (MAP) Pulse Ox O2 Delivery O2 Flow Rate FiO2 06/25/20 08:00 97.5 59 21 103/70 (81) 99 06/25/20 04:00 97.8 72 20 120/74 (89) 98 06/25/20 00:00 97.5 75 20 118/76 (90) 98 06/24/20 21:59 98.1 06/24/20 21:00 Room Air 06/24/20 20:00 100.0 80 20 125/65 (85) 96 06/24/20 16:00 98.1 87 20 127/67 (87) 95 Intake and Output 06/24/20 06/25/20 19:00 07:00 Intake Total 1395 ml 250 ml Output Total 800 ml 500 ml Balance 595 ml -250 ml Intake Oral 700 ml 250 ml IV Total 695 ml Output Urine Total 800 ml 500 ml # Voids 2 # Bowel Movements 1 1 Laboratory Tests 06/25/20 03:45: White Blood Count 7.5, Red Blood Count 3.43L, Hemoglobin 8.6L, Hematocrit 27.1L , Mean Corpuscular Volume 79L, Mean Corpuscular Hemoglobin 25.1L, Mean Corpuscular Hemoglobin Concent 31.8L, Red Cell Distribution Width 13.6, Platelet Count 551H, Mean Platelet Volume 4.8L, Neutrophils (%) (Auto) 79.7H, Lymphocytes (%) (Auto) 13.9L, Monocytes (%) (Auto) 6.1, Eosinophils (%) (Auto) 0.0, Basophils (%) (Auto) 0.3, Activated Partial Thromboplast Time 83H Height (Feet): 6 Height (Inches): 0.00 Weight (Pounds): 147 Objective WDWN AA man NCAT. (+) ulcerative pharyngitis supple CTA RR Abd soft NT ND (+) RLE edema Partha Harris MD Jun 25, 2020 13:15
[2020-06-25] MEDS ORDERED: ELIQUIS5 MG ORAL (13:26)
[2020-06-25] MEDS ORDERED: ACYCLOVIR800 MG ORAL (13:26)
[2020-06-25] MEDS ORDERED: FAMOTIDINE20 MG ORAL (13:26)
[2020-06-25 16:00] VITALS: BP 115/80
--- NOTE | 2020-06-26 01:14 | Discharge Summary ---
DATE OF ADMISSION: 06/19/2020 DATE OF DISCHARGE: 06/25/2020 ADMISSION DIAGNOSES: 1. Proctitis. 2. Anemia. 3. Dehydration. DISCHARGE DIAGNOSES: 1. Proctitis. 2. Anemia. 3. Dehydration. 4. Left lower extremity DVT. HOSPITAL COURSE: Mr. Unger is a pleasant 25-year-old male, who presented with complaints of malaise, weakness, and back pain. A CAT scan of the abdomen showed evidence of proctitis. The patient was noted to be anemic. He had mild elevation of liver function tests. GI, Infectious Disease, and Hematology consultations were obtained. The patient's stool occult blood was negative. He underwent an upper and lower endoscopy that were relatively unremarkable. He also had a capsule endoscopy, results of which are currently pending. He had no bleeding while in-house. He did have a venous duplex that showed an acute DVT. He was initially placed on a heparin drip and converted over to Eliquis. On discharge, his hemoglobin was improving. LFTs had normalized. He will be discharged home with 7 days of Eliquis 10 b.i.d. and then 5 mg b.i.d. for maintenance. He has been asked to follow up with his PMD and the plasma center technician as well as the italian lecturer. A message was left with the patient's mother regarding the results of tests and plan of care. DISCHARGE MEDICATIONS: Please see discharge medication list for discharge medications. DIET: Regular diet. ACTIVITIES: Ad-dee. Shree Conte M.D. DR: GILMER JOB#: [id number] CC:
== END 2020-06-25 17:52 | disposition home or self-care (01) | DRG 690 ==
LOC: EMR 15:04 → 3E 15:51 → EDBEDREQ 17:57
PROC: 0DBF8ZX Excision of Right Large Intestine, Via Natural or Artificial Opening Endoscopic, Diagnostic (ICD-10-PCS; principal; 2020-06-22 08:08)
PROC: 0DB78ZX Excision of Stomach, Pylorus, Via Natural or Artificial Opening Endoscopic, Diagnostic (ICD-10-PCS; principal; 2020-06-22 08:08)
PROC: 0DBG8ZX Excision of Left Large Intestine, Via Natural or Artificial Opening Endoscopic, Diagnostic (ICD-10-PCS; principal; 2020-06-22 08:08)
PROC: 0DBP8ZX Excision of Rectum, Via Natural or Artificial Opening Endoscopic, Diagnostic (ICD-10-PCS; principal; 2020-06-22 08:08)
PROC: 0DB98ZX Excision of Duodenum, Via Natural or Artificial Opening Endoscopic, Diagnostic (ICD-10-PCS; principal; 2020-06-22 08:08)
DX: N30.90 Cystitis, unspecified without hematuria (principal); E87.1 Hypo-osmolality and hyponatremia; I82.431 Acute embolism and thrombosis of right popliteal vein; I82.412 Acute embolism and thrombosis of left femoral vein; K62.89 Other specified diseases of anus and rectum; N20.0 Calculus of kidney; E86.0 Dehydration; D50.0 Iron deficiency anemia secondary to blood loss (chronic); R31.9 Hematuria, unspecified; J02.9 Acute pharyngitis, unspecified
CPT/HCPCS: 36415; 71045; 74176; 80053; 81003; 82550; 82607; 82728; 82746; 83540; 83550; 83605; 83690; 85007; 85025; 85379; 85610; 85730; 86039; 86308; 86705; 86709; 86803; 86850; 86900; 86901; 86920; 87040; 87070; 87086; 87340; 87798; 93970; 93971; 94003; 94150; 96365; 96375; 99285; J2405; J7030; U0002